=== PATIENT | female | born 1985 | race Caucasian/White ===

== ENCOUNTER 2019-11-26 22:22 | Emergency (ER) | payer MEDICAID, SELFPAY ==
[2019-11-26 22:23] VITALS: BP 136/83; PULSE 107; RESP 16; TEMP 37.2; O2SAT 98; BMI 20.7
[2019-11-26 22:53] LABS: Microscopic, Urine URINE MICROSCOPIC (MICROSCOPIC)
[2019-11-26 22:55] LABS: Appearance,Urine CLEAR (Clear); Bilirubin,Urine Negative (Negative); Blood, Urine TRACE-L (Negative); Color,Urine YELLOW (Yellow); Glucose,Urine (UA) Negative (Negative); Ketones,Urine Negative (Negative); Leukocyte Esterase,Urine TRACE (Negative); Nitrate,Urine Negative (Negative); Protein,Urine Negative (Negative); Specific Gravity, Urine <= 1.005 (1.005-1.030); Urobilinogen,Urine 0.2 EU/dl (0.2)
[2019-11-26 22:56] LABS: Basophils # 0.1 K/mm3 (0-0.2); Basophils % 0.6 % (0.1-2.0); Eosinophils # 0.9 K/mm3 (0.0-0.4); Eosinophils % 6.5 % (0.1-12.0); Hematocrit 43.2 % (37.0-47.0); Hemoglobin 15.1 g/dL (12.2-16.2); Lymphocytes # 4.3 K/mm3 (0.7-4.5); Lymphocytes % 32.6 % (10-50); Mean Corpuscular HGB Conc 34.9 g/dL (31.8-35.4); Mean Corpuscular Hemoglobin 32.2 pg (27.0-31.2); Mean Corpuscular Volume 92.3 fl (81-99); Mean Platelet Volume 7.2 fl (7.4-10.4); Monocytes # 0.5 K/mm3 (0.1-1.0); Monocytes % 3.6 % (1.7-9.3); Neutrophils # 7.5 K/mm3 (1.8-7.8); Neutrophils % 56.8 % (37.0-80.0); Platelet Count 316 K/mm3 (142-424); Red Blood Count 4.68 M/mm3 (4.20-5.40); Red Cell Distribution Width 12.2 % (11.5-17.5); White Blood Count 13.3 K/mm3 (4.8-10.8)
[2019-11-26 22:57] LABS: Chloride 103 mmol/L (98-107); Potassium 3.4 mmoL/L (3.5-5.1); Sodium 140 mmol/L (136-145)
[2019-11-26 22:59] LABS: Blood Urea Nitrogen 8 mg/dl (7-17); Creatinine Clearance Estimated 90 mL/min (50-200); Estimated Glomerular Filt Rate 83 ml/min (>60); GFR (African American) 100 ML/MIN (>60)
[2019-11-26 23:00] LABS: Alanine Aminotransferase 15 U/L (12-78); Albumin Level 4.7 g/dl (3.5-5.0); Albumin/Globulin Ratio 1.3 (1.1-1.8); Alkaline Phosphatase 112 U/L (38-126); Anion Gap 15.4 mEq/L (5-15); Aspartate Amino Transferase 21 U/L (14-36); Bilirubin,Total 0.6 mg/dl (0.2-1.3); Carbon Dioxide 25 mmol/L (22.0-30.0); Globulin 3.5 g/dL (1.3-3.2); Glucose 117 mg/dl (74-100); Total Protein,Serum 8.2 g/dl (6.3-8.2)
[2019-11-26 23:03] LABS: Urine Pregnancy, HCG Qual. Negative (Negative)
[2019-11-26 23:09] LABS: Bacteria,Urine 1+ /lpf
[2019-11-26 23:09] LABS: HCG Qualitative, Serum Negative (Negative)
--- NOTE | 2019-11-26 23:34 | HMH.EDNVD ---
ED Disposition Clinical Impression: Fatigue Qualifiers: Fatigue type: unspecified Qualified Code(s): R53.83 - Other fatigue Disposition: Home, Self-Care Condition on Discharge: Good Instructions: DI for Nausea -- Adult Additional Instructions: fluids and call pcp in am Referrals: Rachel Logan PA [Primary Care Provider] - - Critical Care Critical Care Time: No Attestation: On 11/26/19, the high probability of a clinically significant, sudden or life threatening deterioration of the following system(s) required my full and direct attention, intervention and personal management. The time I documented below is in addition to time spent performing reported procedures but includes the following listed in this critical care notation. Medical Decision Making - Medical Records Medical records reviewed: Yes: I reviewed the patient's medical records. - Lawson Inquiry Pt receiving controlled substance: No Vital Signs: 11/26/19 22:23 Temperature 98.9 F Temperature Source Oral Pulse Rate [Left Radial] 107 H Respiratory Rate 16 Blood Pressure [Right Arm] 136/83 Blood Pressure Mean [Right Arm] 100 Blood Pressure Source [Right Arm] Automatic Cuff Blood Pressure Position [Right Arm] Sitting 02 Sat by Pulse Oximetry 98 Oxygen Delivery Method Room Air - Lab Data Lab results reviewed: Yes: I reviewed the patient's lab results. Lab Results 11/26/19 22:30: Urine Color Yellow, Urine Appearance Clear, Urine pH 6.0, Ur Specific [place] <= 1.005, Urine Protein Negative, Urine Glucose (UA) Negative, Urine Ketones Negative, Urine Blood Trace-l, Urine Nitrate Negative, Urine Bilirubin Negative, Urine Urobilinogen 0.2, Ur Leukocyte Esterase Trace, Urine RBC 3-5, Urine WBC 3-5, Ur Squamous Epith Cells 5-10, Urine Bacteria 1+ 11/26/19 22:30: Urine HCG, Qual Negative 11/26/19 22:45: WBC 13.3 H, RBC 4.68, Hgb 15.1, Hct 43.2, MCV 92.3, MCH 32.2 H, MCHC 34.9, RDW 12.2, Plt Count 316, MPV 7.2 L, Neut % (Auto) 56.8, Lymph % (Auto) 32.6, [place] % (Auto) 3.6, Eos % (Auto) 6.5, Baso % (Auto) 0.6, Neut # (Auto) 7.5, Lymph # (Auto) 4.3, [place] # (Auto) 0.5, Eos # (Auto) 0.9 H, Baso # (Auto) 0.1 11/26/19 22:45: Sodium 140, Potassium 3.4 L, Chloride 103, Carbon Dioxide 25, Anion Gap 15.4 H, BUN 8, Creatinine 0.80, Estimated Creat Clear 90, Estimated GFR 83, Est GFR ( Amer) 100, Glucose 117 H, Calcium 10.0, Total Bilirubin 0.6, AST 21, ALT 15, Alkaline Phosphatase 112, Total Protein 8.2, Albumin 4.7, Globulin 3.5 H, Albumin/Globulin Ratio 1.3 11/26/19 22:45: Serum HCG, Qual Negative Result diagrams: 11/26/19 22:45 11/26/19 22:45 Nausea/Vomiting/Diarrhea HPI - General Chief complaint: Nausea/Vomiting/Diarrhea Stated complaint: no engery Time Seen by Provider: 11/26/19 23:34 Mode of Arrival: Ambulatory Source of Information: Patient, Medical Record Limitations: No Limitations Description of Symptoms (Recalled from ER Triage Doc. by RN): pt stated she had had no energy for the past couple of days and has been nauseous. pt stated she needs blood work because she thinks she might be - History of Present Illness HPI Narrative: dec energy and nausea over the last few days MD complaint: nausea Onset (ago): hour(s) Associated Abdominal Pain: Yes Associated symptoms: denies other symptoms - Related Data Previous Rx's Medication Instructions Recorded predniSONE [Prednisone 10mg Tab 10 mg PO UD DOSE PK 6 Days #21 pack 12/11/18 Dose-Pack] Allergies Allergy/AdvReac Type Severity Reaction Status Date / Time No Known Allergies Allergy Verified 11/08/18 20:12 [facility] History - Hepatitis A Screen Drug use history?: No High risk sexual behaviors?: No History of sexually transmitted infection?: No Currently employed?: No Childcare worker?: No Do you have indoor plumbing?: Yes Do you have electricity?: Yes Attestation statement:: This patient has been screened for Hepatitis A risk factors. I robe
[2019-11-26 23:43] VITALS: BP 110/71; PULSE 67; RESP 16; TEMP 36.6; O2SAT 98
[2019-11-27 00:20] LABS: Thyroid Stimulating Hormone 0.55 uIU/mL (0.465-4.68)
== END 2019-11-26 23:44 | disposition home or self-care (01) ==
PROVIDERS: Emergency Provider Emergency Medicine; PCP Physician Assistant
DX: R53.83 Other fatigue (principal); F41.9 Anxiety disorder, unspecified; F17.210 Nicotine dependence, cigarettes, uncomplicated
CPT/HCPCS: 80053; 81001; 81025; 84436; 84443; 84703; 85025; 99283

== ENCOUNTER 2020-01-22 23:10 | Emergency (ER) | payer MEDICAID, SELFPAY ==
[2020-01-22 23:14] VITALS: BP 129/78; PULSE 108; RESP 16; TEMP 36.8; O2SAT 98; BMI 21.4
[2020-01-22 23:40] VITALS: BMI 21.4
--- NOTE | 2020-01-22 23:41 | US_ITS ---
PROCEDURE: US OB TRANSVAGINAL CLINICAL INDICATION: abd cramping 9 weeks COMPARISON: No exams were available for comparison FINDINGS: An intrauterine gestational sac is present with a pole with a crown-rump length of 1.42 cm correlating to gestational age of 7 weeks 6 days. heart tones are present with an FHR of 174. Yolk sac is noted. No adnexal mass apparent. There is bilateral ovarian blood flow IMPRESSION: Live IUP at 7 weeks 6 days. Estimated due date by Ultrasound is 09/06/2020 Dictated by: Gerardo Blanchard MD 01/23/2020 06:15 Gerardo Blanchard MD in [facility] 01/23/2020 06:15
[2020-01-22 23:44] LABS: Microscopic, Urine URINE MICROSCOPIC (MICROSCOPIC)
[2020-01-22 23:50] LABS: Urine Pregnancy, HCG Qual. Positive (Negative)
[2020-01-22 23:51] LABS: Chloride 103 mmol/L (98-107); Potassium 3.1 mmoL/L (3.5-5.1); Sodium 137 mmol/L (136-145)
[2020-01-22 23:52] LABS: Appearance,Urine CLEAR (Clear); Bilirubin,Urine Negative (Negative); Blood, Urine Negative (Negative); Color,Urine YELLOW (Yellow); Glucose,Urine (UA) Negative (Negative); Ketones,Urine Negative (Negative); Leukocyte Esterase,Urine TRACE (Negative); Nitrate,Urine Negative (Negative); PH,Urine 6.5 (5.0-8.5); Protein,Urine Negative (Negative); Specific Gravity, Urine 1.015 (1.005-1.030)
[2020-01-22 23:54] LABS: Anion Gap 11.1 mEq/L (5-15); Blood Urea Nitrogen 5 mg/dl (7-17); Calcium 9.5 mg/dl (8.4-10.2); Carbon Dioxide 26 mmol/L (22.0-30.0); Creatinine Clearance Estimated 119 mL/min (50-200); Estimated Glomerular Filt Rate 115 ml/min (>60); GFR (African American) 139 ML/MIN (>60); Glucose 110 mg/dl (74-100)
[2020-01-22 23:57] LABS: Amorphous Sediment,Urine 1+ /lpf; Bacteria,Urine 1+ /lpf; Mucus,Urine 1+ /lpf
--- NOTE | 2020-01-22 23:57 | HMH.EDPREG ---
ED Disposition Clinical Impression: Qualifiers: Weeks of gestation: 8 weeks Qualified Code(s): Z3A.08 - 8 weeks gestation of Disposition: Home, Self-Care Condition on Discharge: Good Instructions: Diet Additional Instructions: see ob and pcp for follow up Referrals: Rachel Logan PA [Primary Care Provider] - - Critical Care Critical Care Time: No Attestation: On 01/22/20, the high probability of a clinically significant, sudden or life threatening deterioration of the following system(s) required my full and direct attention, intervention and personal management. The time I documented below is in addition to time spent performing reported procedures but includes the following listed in this critical care notation. Medical Decision Making - Medical Records Medical records reviewed: Yes: I reviewed the patient's medical records. - Lawson Inquiry Pt receiving controlled substance: No Vital Signs: 01/22/20 23:14 Temperature 98.2 F Temperature Source Oral Pulse Rate [Left Radial] 108 H Respiratory Rate 16 Blood Pressure [Right Arm] 129/78 Blood Pressure Mean [Right Arm] 95 Blood Pressure Source [Right Arm] Automatic Cuff Blood Pressure Position [Right Arm] Sitting 02 Sat by Pulse Oximetry 98 Oxygen Delivery Method Room Air - Lab Data Lab results reviewed: Yes: I reviewed the patient's lab results. Lab Results 01/22/20 23:31: Urine Color Yellow, Urine Appearance Clear, Urine pH 6.5, Ur Specific [place] 1.015, Urine Protein Negative, Urine Glucose (UA) Negative, Urine Ketones Negative, Urine Blood Negative, Urine Nitrate Negative, Urine Bilirubin Negative, Urine Urobilinogen 1.0, Ur Leukocyte Esterase Trace, Urine WBC 3-5, Ur Squamous Epith Cells 5-10, Amorphous Sediment 1+, Urine Bacteria 1+, Urine Mucus 1+ 01/22/20 23:31: Urine HCG, Qual Positive 01/22/20 23:35: WBC 12.8 H, RBC 4.41, Hgb 14.0, Hct 41.9, MCV 95.1, MCH 31.8 H, MCHC 33.5, RDW 12.5, Plt Count 352, MPV 7.0 L, Neut % (Auto) 61.3, Lymph % (Auto) 29.8, [place] % (Auto) 4.4, Eos % (Auto) 4.1, Baso % (Auto) 0.5, Neut # (Auto) 7.8, Lymph # (Auto) 3.8, [place] # (Auto) 0.6, Eos # (Auto) 0.5 H, Baso # (Auto) 0.1 01/22/20 23:35: Sodium 137, Potassium 3.1 L, Chloride 103, Carbon Dioxide 26, Anion Gap 11.1, BUN 5 L, Creatinine 0.60, Estimated Creat Clear 119, Estimated GFR 115, Est GFR ( Amer) 139, Glucose 110 H, Calcium 9.5, HCG, Quant [id number] H Result diagrams: 01/22/20 23:35 01/22/20 23:35 Orders (Tests/Meds): ED MEDICATIONS Generic Name Dose Route Start Last Admin Trade Name Freq PRN Reason Stop Dose Admin Sodium Chloride 1,000 mls @ 999 mls/hr 01/23/20 00:15 Sod Chlor 0.9% 1000ml Bag IV 01/23/20 01:15 .Q1H1M [place] ORDERS Category Date Time Status US OB transvaginal Stat Ultrasound 01/22/20 23:41 Taken - US Data US Images: Pelvis ED US Reviewed: Yes: I have viewed radiologist's interpretation Findings Narrative: iup 8 weeks HPI - General Chief complaint: Nausea/Vomiting/Diarrhea Stated complaint: 9 weeks, stomach cramps Time Seen by Provider: 01/22/20 23:40 Mode of Arrival: Ambulatory Source of Information: Patient, Medical Record Limitations: No Limitations Description of Symptoms (Recalled from ER Triage Doc. by RN): pt stated she is estimated to be 9 weeks and c/o nausea and pelvic cramping for the last 2 days. - History of Present Illness HPI Narrative: with cramps w/o bleeding and nausea MD Complaint: abdominal pain Onset (ago): day(s) Severity: moderate Quality: cramping : Yes Date of Last Menstrual Period: unk care: none - Related Data Previous Rx's Medication Instructions Recorded predniSONE [Prednisone 10mg Tab 10 mg PO UD DOSE PK 6 Days #21 pack 12/11/18 Dose-Pack] Allergies Allergy/AdvReac Type Severity Reaction Status Date / Time No Known Allergies Allergy Verified 11/08/18 2
[2020-01-22 23:59] LABS: Basophils # 0.1 K/mm3 (0-0.2); Basophils % 0.5 % (0.1-2.0); Eosinophils # 0.5 K/mm3 (0.0-0.4); Eosinophils % 4.1 % (0.1-12.0); Hematocrit 41.9 % (37.0-47.0); Lymphocytes # 3.8 K/mm3 (0.7-4.5); Lymphocytes % 29.8 % (10-50); Mean Corpuscular HGB Conc 33.5 g/dL (31.8-35.4); Mean Corpuscular Hemoglobin 31.8 pg (27.0-31.2); Mean Corpuscular Volume 95.1 fl (81-99); Monocytes # 0.6 K/mm3 (0.1-1.0); Monocytes % 4.4 % (1.7-9.3); Neutrophils # 7.8 K/mm3 (1.8-7.8); Neutrophils % 61.3 % (37.0-80.0); Platelet Count 352 K/mm3 (142-424); Red Blood Count 4.41 M/mm3 (4.20-5.40); Red Cell Distribution Width 12.5 % (11.5-17.5); White Blood Count 12.8 K/mm3 (4.8-10.8)
[2020-01-23 00:50] VITALS: BP 127/81; PULSE 75; RESP 16; TEMP 36.8; O2SAT 99
== END 2020-01-23 00:52 | disposition home or self-care (01) ==
PROVIDERS: Emergency Provider Emergency Medicine; PCP Physician Assistant
DX: R11.2 Nausea with vomiting, unspecified (principal); Z3A.08 8 weeks gestation of pregnancy; F17.210 Nicotine dependence, cigarettes, uncomplicated
CPT/HCPCS: 76817; 80048; 81001; 81025; 84702; 85025; 96365; 99283

== ENCOUNTER → 2020-01-29 14:36 | Outpatient (CLI) | payer MEDICAID, SELFPAY ==
[2020-01-29 15:13] LABS: Basophils # 0.1 K/mm3 (0-0.2); Basophils % 0.5 % (0.1-2.0); Eosinophils # 0.4 K/mm3 (0.0-0.4); Eosinophils % 3.3 % (0.1-12.0); Hematocrit 39.5 % (37.0-47.0); Hemoglobin 14.2 g/dL (12.2-16.2); Lymphocytes # 2.6 K/mm3 (0.7-4.5); Lymphocytes % 23.8 % (10-50); Mean Corpuscular HGB Conc 35.9 g/dL (31.8-35.4); Mean Corpuscular Hemoglobin 33.7 pg (27.0-31.2); Mean Corpuscular Volume 93.9 fl (81-99); Mean Platelet Volume 6.9 fl (7.4-10.4); Monocytes # 0.4 K/mm3 (0.1-1.0); Monocytes % 3.8 % (1.7-9.3); Neutrophils # 7.6 K/mm3 (1.8-7.8); Neutrophils % 68.6 % (37.0-80.0); Platelet Count 313 K/mm3 (142-424); Red Cell Distribution Width 12.5 % (11.5-17.5); White Blood Count 11.1 K/mm3 (4.8-10.8)
[2020-01-31 10:47] LABS: Rapid Plasma Reagin Ab Titer Non Reactive (NonRea<1:1)
[2020-01-31 13:49] LABS: HIV Screen 4th Generation wRfx Non Reactive (Non Reactive); Hepatitis B Surface Antigen Negative (Negative); Hepatitis C Antibody <0.1 s/co ratio (0.0-0.9); Rubella Antibodies, IgG 1.59 index (Immune >0.99)
== END ==
PROVIDERS: Visit Provider Nurse Practitioner Obstetrics & Gynecology
DX: Z34.90 Encounter for supervision of normal pregnancy, unspecified, unspecified trimester (principal)
CPT/HCPCS: 36415; 85025; 86592; 86703; 86762; 86850; 87340; 87380; G0432

== ENCOUNTER → 2020-03-10 16:51 | Outpatient (CLI) | payer MEDICAID, SELFPAY ==
[2020-03-10 16:52] LABS: Microscopic, Urine URINE MICROSCOPIC (MICROSCOPIC)
[2020-03-10 17:31] LABS: Appearance,Urine CLOUDY (Clear); Bilirubin,Urine Negative (Negative); Blood, Urine Negative (Negative); Color,Urine YELLOW (Yellow); Glucose,Urine (UA) Negative (Negative); Ketones,Urine Negative (Negative); Leukocyte Esterase,Urine 1+ (Negative); Nitrate,Urine POSITIVE (Negative); Protein,Urine Negative (Negative)
[2020-03-10 17:55] LABS: Bacteria,Urine 3+ /lpf; Squamous Epithelial Cell,Urine 20-50 #/hpf (0-5)
== END ==
PROVIDERS: Visit Provider Nurse Practitioner Obstetrics & Gynecology
DX: Z34.90 Encounter for supervision of normal pregnancy, unspecified, unspecified trimester (principal); N39.0 Urinary tract infection, site not specified
CPT/HCPCS: 81001; 87077; 87086; 87088

== ENCOUNTER → 2020-04-07 13:05 | Outpatient (CLI) | payer MEDICAID, SELFPAY ==
[2020-04-10 00:07] LABS: AFP Value 41.3 ng/mL (.); DIA MoM 2.41 (.); DSR (Second Trimester) 1 IN 388 (.); Gest. Age on Collection Date 18.7 WEEKS (.); Maternal Age At EDD 33.8 yr (.); OSBR Risk 1 IN 10000 (.); Results Report (.); hCG MoM 0.72 (.); hCG Value 22217 mIU/mL (.); uE3 MoM 1.01 (.); uE3 Value 1.88 ng/mL (.)
[2020-04-10 08:47] LABS: Gestat. Age Based On EDD (.)
== END ==
PROVIDERS: Visit Provider Nurse Practitioner Obstetrics & Gynecology
DX: Z34.90 Encounter for supervision of normal pregnancy, unspecified, unspecified trimester (principal); N39.0 Urinary tract infection, site not specified
CPT/HCPCS: 36415; 82106; 87086

== ENCOUNTER → 2020-04-22 12:46 | Outpatient (CLI) | payer MEDICAID, SELFPAY ==
--- NOTE | 2020-04-22 12:47 | US_ITS ---
PROCEDURE: US OB /MATERNAL DETAIL CLINICAL INDICATION: 20 week gestation Anatomy scan COMPARISON: US US OB TRANSVAGINAL from 01/23/2020 FINDINGS: There is a single live fetus present which is in breech presentation. The cervix is closed and measures 3 cm. The placenta is posterior and grade 1. Complete survey performed and was unremarkable on the submitted images as in PACS. No discrete anomalies identified on survey imaging by technologist. Active fetus. Three-vessel cord with satisfactory umbilical cord insertion. 4- chamber heart noted. There is a nonspecific echogenic intracardiac focus Survey of brain & ventricles Unremarkable. Face and neck survey unremarkable. Diaphragm and chest views unremarkable. Abdomen: Both kidneys noted and unremarkable. Stomach noted and satisfactory. Spine: Survey of the spine satisfactory with no anomalies identified nor imaged. Both arms and legs noted. Amniotic Fluid: Adequate. Maternal adnexa: No significant findings. Measurements: Average ultrasound age 21weeks 1day. Gestational Age 21weeks 0days Estimated due date by ultrasound age 0609/01/2020. Estimated weight 298g BPD = 21weeks 2days OFD = 20weeks 6days HC = 20weeks 2days AC = 21weeks 3days FL = 21weeks 1day Growth Percentile= 50Percent% Heart Rate = 149bpm Cerebellum = 21weeks 4days Humerus = 21weeks 2days HC/AC is 1.09 CI is 0.81 FL/BPD is 0.70 FL/AC is 0.22 IMPRESSION: Live IUP in breech presentation with an average ultrasound age 21 weeks 1 day. All parameters correlate. There is a nonspecific probably incidental intracardiac echogenic focus. Otherwise unremarkable. Please see above for detail. Dictated by: Gerardo Blanchard MD 04/24/2020 11:25 Gerardo Blanchard MD in [facility] 04/24/2020 11:25
== END ==
PROVIDERS: PCP Physician Assistant; Visit Provider Nurse Practitioner Obstetrics & Gynecology
DX: Z34.90 Encounter for supervision of normal pregnancy, unspecified, unspecified trimester (principal); Z3A.20 20 weeks gestation of pregnancy
CPT/HCPCS: 76811

== ENCOUNTER → 2020-05-06 17:07 | Outpatient (CLI) | payer MEDICAID, SELFPAY | PROVIDERS: Visit Provider Nurse Practitioner Obstetrics & Gynecology | DX: N39.0 Urinary tract infection, site not specified (principal) | CPT/HCPCS: 87086 ==

== ENCOUNTER 2020-05-18 21:51 | Emergency (ER) | payer MEDICAID, SELFPAY ==
--- NOTE | 2020-05-18 22:00 | ECG_ITS ---
APPROVED REPORT Exam: Resting ECG HR:121 bpm ECG Measurements Heart Rate 121 AXES OK 166 P 58 QRSd 66 QRS 72 QT 286 T 81 QTc 406 Conclusion Sinus tachycardia Nonspecific ST and T wave abnormality Abnormal ECG Electronically signed by : López Perdomo, 05/19/2020 06:56:37
[2020-05-18 22:02] VITALS: BP 163/85; PULSE 134; RESP 18; TEMP 37; O2SAT 98; BMI 22.3
--- NOTE | 2020-05-18 22:18 | XR_ITS ---
PROCEDURE: XR CHEST 2V CLINICAL HISTORY: SOA Shortness of air, smoker COMPARISON: No exams were available for comparison FINDINGS: The cardiomediastinal silhouette and pulmonary vascularity are within normal limits. The lungs are clear without infiltrates, suspicious nodules, or pleural effusions. No acute bony abnormalities. IMPRESSION: No acute findings. Dictated by: Gerardo Blanchard MD 05/19/2020 05:15 Gerardo Blanchard MD in [facility] 05/19/2020 05:15
--- NOTE | 2020-05-18 22:32 | HMH.EDSOB ---
ED Disposition Clinical Impression: GERD (gastroesophageal reflux disease) Qualifiers: Esophagitis presence: esophagitis presence not specified Qualified Code(s): K21.9 - Gastro-esophageal reflux disease without esophagitis Qualifiers: Weeks of gestation: 24 weeks Qualified Code(s): Z3A.24 - 24 weeks gestation of Disposition: Home, Self-Care Condition on Discharge: Good Instructions: DI for Shortness of Breath Additional Instructions: call dr neil for follow up Referrals: Rachel Logan PA [Primary Care Provider] - Ronni eNil MD [Staff Physician] - - Critical Care Critical Care Time: No Attestation: On 05/18/20, the high probability of a clinically significant, sudden or life threatening deterioration of the following system(s) required my full and direct attention, intervention and personal management. The time I documented below is in addition to time spent performing reported procedures but includes the following listed in this critical care notation. Medical Decision Making - Medical Records Medical records reviewed: Yes: I reviewed the patient's medical records. - Lawson Inquiry Pt receiving controlled substance: No Vital Signs: 05/18/20 22:02 05/18/20 22:51 Temperature 98.6 F Temperature Source Oral Pulse Rate [Right] 134 H 110 H Respiratory Rate 18 18 Blood Pressure [Right Arm] 163/85 H 147/82 H Blood Pressure Mean [Right Arm] 111 103 Blood Pressure Source [Right Arm] Automatic Cuff Blood Pressure Position [Right Arm] Supine 02 Sat by Pulse Oximetry 98 97 Oxygen Delivery Method Room Air Room Air - Lab Data Lab results reviewed: Yes: I reviewed the patient's lab results. Lab Results 05/18/20 22:50: WBC 19.0 H, RBC 3.46 L, Hgb 11.3 L, Hct 32.4 L, MCV 93.7, MCH 32.7 H, MCHC 34.9, RDW 13.2, Plt Count 402, MPV 7.0 L, Neut % (Auto) 80.9 H, Lymph % (Auto) 11.3, [place] % (Auto) 2.6, Eos % (Auto) 4.8, Baso % (Auto) 0.4, Neut # (Auto) 15.3 H, Lymph # (Auto) 2.2, [place] # (Auto) 0.5, Eos # (Auto) 0.9 H, Baso # (Auto) 0.1, Total Counted 100, Neutrophils % (Manual) 74, Band Neutrophils % 9.0 H, Lymphocytes % (Manual) 13, Monocytes % (Manual) 1 L, Eosinophils % (Manual) 3, Platelet Estimate Normal, RBC Morphology Normal, ESR 123 H 05/18/20 22:50: D-Dimer 1.64 H 05/18/20 22:50: Sodium 137, Potassium 3.2 L, Chloride 107, Carbon Dioxide 24, Anion Gap 9.2, BUN 6 L, Creatinine 0.60, Estimated Creat Clear 124, Estimated GFR 115, Est GFR ( Amer) 139, Glucose 121 H, Calcium 10.1, Total Bilirubin 0.5, AST 19, ALT 10 L, Alkaline Phosphatase 121, C-Reactive Protein 10.7 H, Total Protein 6.9, Albumin 3.7, Globulin 3.2, Albumin/Globulin Ratio 1.2, Procalcitonin 0.094, HCG, Quant [id number] H 05/18/20 22:50: SARS-CoV-2 IgG Ab (Rapid) Negative, SARS-CoV-2 IgM Ab (Rapid) Negative 05/18/20 22:50: Amylase 77, Lipase 125 Result diagrams: 05/18/20 22:50 05/18/20 22:50 Orders (Tests/Meds): ED MEDICATIONS Generic Name Dose Route Start Last Admin Trade Name Freq PRN Reason Stop Dose Admin Sodium Chloride 1,000 mls @ 999 mls/hr 05/18/20 22:30 05/18/20 22:34 Sod Chlor 0.9% 1000ml Bag IV 05/18/20 23:30 999 mls/hr .Q1H1M [place] Administration Sodium Chloride 8 ml 05/18/20 23:11 Sodium Chloride 0.9% 10ml Vial IV 06/17/20 23:10 NEEDED PRN dilute pepcid Discontinued Medications Generic Name Dose Route Start Last Admin Trade Name Freq PRN Reason Stop Dose Admin Famotidine 20 mg 05/18/20 23:11 05/18/20 23:24 Famotidine 20mg/2ml Vial IV 05/18/20 23:12 20 mg ONCE ONE Administration Metoclopramide HCl 10 mg 05/18/20 23:11 05/18/20 23:24 Metoclopramide Hcl 10mg/2ml Vial IVP 05/18/20 23:12 10 mg ONCE ONE Administration Pantoprazole Sodium 40 mg 05/19/20 00:13 Pantoprazole 40mg Tablet PO 05/19/20 00:14 ONCE ONE ORDERS Category Date Time Status XR chest 2V Stat Exams 05/18/20 22:18 Taken Covid-19 Nasal PCR ([facility]) Routine
[2020-05-18 22:51] VITALS: BP 147/82; PULSE 110; RESP 18; O2SAT 97
[2020-05-18 22:55] LABS: Basophils # 0.1 K/mm3 (0-0.2); Basophils % 0.4 % (0.1-2.0); Eosinophils # 0.9 K/mm3 (0.0-0.4); Eosinophils % 4.8 % (0.1-12.0); Hematocrit 32.4 % (37.0-47.0); Hemoglobin 11.3 g/dL (12.2-16.2); Lymphocytes # 2.2 K/mm3 (0.7-4.5); Lymphocytes % 11.3 % (10-50); MANUAL DIFFERENTIAL MANUAL DIFFERENTIAL (MANUAL DIFF); Mean Corpuscular HGB Conc 34.9 g/dL (31.8-35.4); Mean Corpuscular Hemoglobin 32.7 pg (27.0-31.2); Mean Corpuscular Volume 93.7 fl (81-99); Monocytes # 0.5 K/mm3 (0.1-1.0); Monocytes % 2.6 % (1.7-9.3); Neutrophils # 15.3 K/mm3 (1.8-7.8); Neutrophils % 80.9 % (37.0-80.0); Platelet Count 402 K/mm3 (142-424); Red Blood Count 3.46 M/mm3 (4.20-5.40); Red Cell Distribution Width 13.2 % (11.5-17.5)
[2020-05-18 23:02] LABS: Chloride 107 mmol/L (98-107); Potassium 3.2 mmoL/L (3.5-5.1); Sodium 137 mmol/L (136-145)
[2020-05-18 23:05] LABS: Alanine Aminotransferase 10 U/L (12-78); Albumin Level 3.7 g/dl (3.5-5.0); Albumin/Globulin Ratio 1.2 (1.1-1.8); Alkaline Phosphatase 121 U/L (38-126); Anion Gap 9.2 mEq/L (5-15); Aspartate Amino Transferase 19 U/L (14-36); Bilirubin,Total 0.5 mg/dl (0.2-1.3); Blood Urea Nitrogen 6 mg/dl (7-17); Carbon Dioxide 24 mmol/L (22.0-30.0); Creatinine Clearance Estimated 124 mL/min (50-200); Estimated Glomerular Filt Rate 115 ml/min (>60); GFR (African American) 139 ML/MIN (>60); Globulin 3.2 g/dL (1.3-3.2); Total Protein,Serum 6.9 g/dl (6.3-8.2)
[2020-05-18 23:06] LABS: Calcium 10.1 mg/dl (8.4-10.2); Glucose 121 mg/dl (74-100)
[2020-05-18 23:11] LABS: C-Reactive Protein 10.7 mg/L (0-4); D-Dimer 1.64 ug/mL (0.0-0.5)
[2020-05-18 23:14] LABS: Eosinophils % 3 % (0-3); Lymphocytes % 13 % (10-50); Monocytes % 1 % (2-9); Neutrophils % 74 % (42-76); Platelet Estimate Normal; RBC Morphology Normal; Total Cells Counted 100
[2020-05-18 23:18] LABS: Erythrocyte Sedimentation Rate 123 mm/hr (0-20)
[2020-05-18 23:25] LABS: Coronavirus 19 IgG Antibody Negative (Negative); HCG,Quantitative 14602 mIU/ml (0-5.42)
[2020-05-18 23:26] LABS: Coronavirus 19 IgM Antibody Negative (Negative)
[2020-05-18 23:28] LABS: Amylase 77 U/L (30-110); Lipase 125 U/L (23-300)
--- NOTE | 2020-05-18 23:30 | PC.NURSE ---
heart tones at 156
[2020-05-18 23:34] LABS: Procalcitonin 0.094 ng/mL (0.0-2.0)
[2020-05-19 00:25] VITALS: BP 142/82; PULSE 108; RESP 16; TEMP 37; O2SAT 98
== END 2020-05-19 00:28 | disposition home or self-care (01) ==
PROVIDERS: Emergency Provider Emergency Medicine; PCP Physician Assistant
DX: K21.9 Gastro-esophageal reflux disease without esophagitis (principal); Z3A.24 24 weeks gestation of pregnancy; F41.9 Anxiety disorder, unspecified; F17.210 Nicotine dependence, cigarettes, uncomplicated; Z20.822 Contact with and (suspected) exposure to COVID-19
CPT/HCPCS: 71046; 80053; 82150; 83690; 84145; 84702; 85007; 85025; 85378; 85651; 86140; 86328; 93005; 96365; 96375; 99283; U0003

== ENCOUNTER → 2020-05-27 17:37 | Outpatient (CLI) | payer MEDICAID, SELFPAY | PROVIDERS: Visit Provider Nurse Practitioner Obstetrics & Gynecology | DX: Z34.90 Encounter for supervision of normal pregnancy, unspecified, unspecified trimester (principal); Z3A.26 26 weeks gestation of pregnancy | CPT/HCPCS: 87086; 87088; 87186 ==

== ENCOUNTER → 2020-06-18 15:55 | Outpatient (CLI) | payer MEDICAID, SELFPAY | PROVIDERS: Visit Provider Nurse Practitioner Obstetrics & Gynecology | DX: O23.40 Unspecified infection of urinary tract in pregnancy, unspecified trimester (principal); N39.0 Urinary tract infection, site not specified | CPT/HCPCS: 87086 ==

== ENCOUNTER → 2020-06-24 10:14 | Outpatient (CLI) | payer MEDICAID, SELFPAY ==
[2020-06-24 10:48] LABS: Glucose,Fasting 95 mg/dl (74-100)
[2020-06-24 12:27] LABS: Glucose 1 Hour 164 mg/dL (74-100)
== END ==
PROVIDERS: Visit Provider Nurse Practitioner Obstetrics & Gynecology
DX: Z34.90 Encounter for supervision of normal pregnancy, unspecified, unspecified trimester (principal)
CPT/HCPCS: 36415; 82951

== ENCOUNTER → 2020-07-23 08:33 | Outpatient (CLI) | payer MEDICAID, SELFPAY ==
[2020-07-23 09:16] LABS: Glucose,Fasting 91 mg/dl (74-100)
[2020-07-23 10:58] LABS: Glucose 1 Hour 191 mg/dL (74-100)
[2020-07-23 11:21] LABS: Glucose 2 Hour 160 mg/dL (74-100)
[2020-07-23 12:41] LABS: Glucose 3 Hour 121 mg/dL (74-100)
== END ==
PROVIDERS: Visit Provider Nurse Practitioner Obstetrics & Gynecology
DX: O99.814 Abnormal glucose complicating childbirth (principal)
CPT/HCPCS: 36415; 82951

== ENCOUNTER 2020-07-24 23:16 | Inpatient (IN) | payer MEDICAID, SELFPAY ==
[2020-07-24 20:53] VITALS: BMI 21.9
[2020-07-24 21:11] VITALS: BP 156/90; PULSE 124; RESP 18; TEMP 36.7; O2SAT 99; BMI 21.9
[2020-07-24 21:45] LABS: Microscopic, Urine URINE MICROSCOPIC (MICROSCOPIC)
[2020-07-24 21:48] LABS: Appearance,Urine CLEAR (Clear); Bilirubin,Urine Negative (Negative); Blood, Urine TRACE-L (Negative); Color,Urine YELLOW (Yellow); Glucose,Urine (UA) Negative (Negative); Ketones,Urine Negative (Negative); Leukocyte Esterase,Urine 2+ (Negative); Nitrate,Urine Negative (Negative); Protein,Urine Negative (Negative); Specific Gravity, Urine <= 1.005 (1.005-1.030); Urobilinogen,Urine 0.2 EU/dl (0.2)
[2020-07-24 21:59] LABS: Barbiturates Screen,Urine Negative ng/ml (<200)
[2020-07-24 22:00] LABS: Amphetamine/Metha Screen,Urine Negative ng/ml (<1000); Benzodiazepines Screen,Urine Negative ng/ml (<200)
[2020-07-24 22:01] LABS: Cannabinoid Screen,Urine Negative ng/ml (<50)
[2020-07-24 22:02] LABS: Cocaine Screen,Urine Negative ng/ml (<300); Methadone Screen,Urine Negative ng/ml (<300)
[2020-07-24 22:03] LABS: Opiate Screen,Urine Negative ng/ml (<300)
[2020-07-24 22:04] LABS: Phencyclidine Screen,Urine Negative ng/ml (<25)
[2020-07-24 22:10] LABS: WBC,Urine 20-50 #/hpf (0-3)
[2020-07-24 22:11] LABS: Bacteria,Urine 1+ /lpf; Mucus,Urine 1+ /lpf; Squamous Epithelial Cell,Urine TNTC #/hpf (0-5)
[2020-07-24 23:38] VITALS: BP 133/69; PULSE 107; RESP 18; TEMP 36.8; O2SAT 99
[2020-07-24 23:39] LABS: Basophils # 0.1 K/mm3 (0-0.2); Basophils % 0.5 % (0.1-2.0); Eosinophils # 0.4 K/mm3 (0.0-0.4); Eosinophils % 2.6 % (0.1-12.0); Hematocrit 30.2 % (37.0-47.0); Hemoglobin 10.2 g/dL (12.2-16.2); Lymphocytes # 2.7 K/mm3 (0.7-4.5); Lymphocytes % 16.1 % (10-50); Mean Corpuscular HGB Conc 33.6 g/dL (31.8-35.4); Mean Corpuscular Volume 92.2 fl (81-99); Mean Platelet Volume 7.7 fl (7.4-10.4); Monocytes # 0.6 K/mm3 (0.1-1.0); Monocytes % 3.5 % (1.7-9.3); Neutrophils # 13.1 K/mm3 (1.8-7.8); Neutrophils % 77.2 % (37.0-80.0); Platelet Count 377 K/mm3 (142-424); Red Blood Count 3.28 M/mm3 (4.20-5.40); Red Cell Distribution Width 13.2 % (11.5-17.5)
[2020-07-24 23:43] LABS: Chloride 108 mmol/L (98-107)
[2020-07-24 23:44] LABS: Potassium 3.4 mmoL/L (3.5-5.1); Sodium 134 mmol/L (136-145)
[2020-07-24 23:46] LABS: Alanine Aminotransferase 8 U/L (12-78); Alkaline Phosphatase 192 U/L (38-126); Aspartate Amino Transferase 16 U/L (14-36); Bilirubin,Total 0.6 mg/dl (0.2-1.3); Blood Urea Nitrogen 3 mg/dl (7-17); Creatinine Clearance Estimated 147 mL/min (50-200); Estimated Glomerular Filt Rate 142 ml/min (>60); GFR (African American) 172 ML/MIN (>60)
[2020-07-24 23:47] LABS: Albumin Level 3.5 g/dl (3.5-5.0); Albumin/Globulin Ratio 1.1 (1.1-1.8); Anion Gap 8.4 mEq/L (5-15); Calcium 9.2 mg/dl (8.4-10.2); Carbon Dioxide 21 mmol/L (22.0-30.0); Globulin 3.1 g/dL (1.3-3.2); Glucose 99 mg/dl (74-100); Total Protein,Serum 6.6 g/dl (6.3-8.2)
[2020-07-24 23:59] LABS: MANUAL DIFFERENTIAL MANUAL DIFFERENTIAL (MANUAL DIFF)
[2020-07-25 00:58] LABS: Eosinophils % 5 % (0-3); Lymphocytes % 14 % (10-50); Neutrophils % 80 % (42-76); Total Cells Counted 100
[2020-07-25 00:59] LABS: Platelet Estimate Normal; Stomatocytes 1+
[2020-07-25 02:59] LABS: Magnesium 1.6 mg/dl (1.6-2.3)
[2020-07-25 03:15] VITALS: BP 133/69; PULSE 90; RESP 18; O2SAT 98
[2020-07-25 03:20] VITALS: BP 141/68; PULSE 90; RESP 18; O2SAT 97
[2020-07-25 03:25] VITALS: BP 133/75; PULSE 103; RESP 19; O2SAT 97
[2020-07-25 03:30] VITALS: BP 133/69; PULSE 107; RESP 18; O2SAT 96
[2020-07-25 03:35] VITALS: BP 133/71; PULSE 106; RESP 17; O2SAT 97
[2020-07-25 05:17] LABS: Microscopic, Urine URINE MICROSCOPIC (MICROSCOPIC)
[2020-07-25 05:22] LABS: Appearance,Urine CLEAR (Clear); Bilirubin,Urine Negative (Negative); Blood, Urine Negative (Negative); Color,Urine YELLOW (Yellow); Glucose,Urine (UA) Negative (Negative); Ketones,Urine 1+ (Negative); Leukocyte Esterase,Urine Negative (Negative); Nitrate,Urine Negative (Negative); PH,Urine 7.5 (5.0-8.5); Protein,Urine Negative (Negative); Specific Gravity, Urine 1.025 (1.005-1.030); Urobilinogen,Urine 0.2 EU/dl (0.2)
[2020-07-25 05:30] LABS: Amorphous Sediment,Urine 1+ /lpf; Bacteria,Urine 1+ /lpf; Mucus,Urine 1+ /lpf; Squamous Epithelial Cell,Urine Occasional #/hpf (0-5)
--- NOTE | 2020-07-25 07:34 | HMH.PHAINT ---
MEDICATION RECONCILIATION COMPLETED ON PATIENT USING EXTERNAL FILL HISTORY FROM PHARMACY. -MARIBELL PRIEST, SHANAED
[2020-07-25 08:00] VITALS: BP 121/73; PULSE 102; RESP 16; TEMP 36.8; O2SAT 97
--- NOTE | 2020-07-25 08:48 | HMH.HPDC ---
General - General Admission date:: 07/24/20 Discharge date: 07/25/20 *Admission Date: 07/24/20 *Chief complaint: Contractions *History of present illness: She is a 34-year-old 4 para 3 at 34 and 2 weeks gestational age. She has had a history of early delivery and delivered her last baby at 32 weeks. She had PIH in that . However she had labor and delivered quite quickly on arrival at . She began having contractions last night and was admitted to labor and delivery. She is having contractions every 2 to 3 minutes. At that time her cervix was 1 to 2 cm. She has changed her cervix to 2 to 3 cm and 50%. The cervix is soft and there is some bloody show. She is still having occasional contractions every 5 to 6 minutes. They are milder. She is currently receiving magnesium sulfate. She has received 1 dose of steroids she has received oral azithromycin as well as IV ampicillin. [facility] History I have reviewed the patient's past medical history: Yes Medical History: Reports:: Anxiety Denies:: Cancer, Diabetes Mellitus Type 1, Diabetes Mellitus Type 2, Home Oxygen, MRSA *Have you ever received a pneumonia vaccine?: No *Have you received a flu vaccine this season?: No Other Surgeries: Yes: No Previous Surgery. No: Amputation: No Fractures: No - *Social History Smoking Status: Current every day smoker Tobacco Type: cigarettes # Packs/Day (cigarettes): 1 Alcohol Intake: never Alcohol Intake Frequency:: other Substance Use Type: denies use *Occupational Status:: unemployed Housing: house *Travel in the last 8 weeks: None - Psychiatric History Pschychiatric History:: Reports:: Anxiety Family Hx:: No significant family history Para: 3 Review of Systems - Review of Systems Review of systems:: pertinent systems reviewed and negative unless documented below Exam Vital signs and Labs for Last 24 Hours: Temp Pulse Resp BP Pulse Ox 98.2 F 102 H 16 121/73 97 07/25/20 08:00 07/25/20 08:00 07/25/20 08:00 07/25/20 08:00 07/25/20 08:00 Laboratory Results - last 24 hr 07/24/20 20:51: Urine Color Yellow, Urine Appearance Clear, Urine pH 6.0, Ur Specific [place] <= 1.005, Urine Protein Negative, Urine Glucose (UA) Negative, Urine Ketones Negative, Urine Blood Trace-l, Urine Nitrate Negative, Urine Bilirubin Negative, Urine Urobilinogen 0.2, Ur Leukocyte Esterase 2+ A, Urine WBC 20-50, Ur Squamous Epith Cells Tntc, Urine Bacteria 1+, Urine Mucus 1+ 07/24/20 20:51: Urine Opiates Screen Negative, Urine Methadone Screen Negative, Ur Barbituates Screen Negative, Ur Phencyclidine Scrn Negative, Ur Amphetamines Screen Negative, U Benzodiazepines Scrn Negative, Urine Cocaine Screen Negative, U Marijuana (THC) Screen Negative 07/24/20 23:22: WBC 17.0 H, RBC 3.28 L, Hgb 10.2 L, Hct 30.2 L, MCV 92.2, MCH 31.0, MCHC 33.6, RDW 13.2, Plt Count 377, MPV 7.7, Neut % (Auto) 77.2, Lymph % (Auto) 16.1, [place] % (Auto) 3.5, Eos % (Auto) 2.6, Baso % (Auto) 0.5, Neut # (Auto) 13.1 H, Lymph # (Auto) 2.7, [place] # (Auto) 0.6, Eos # (Auto) 0.4, Baso # (Auto) 0.1, Total Counted 100, Neutrophils % (Manual) 80 H, Lymphocytes % (Manual) 14, Eosinophils % (Manual) 5 H, Basophils % (Manual) 1.0, Platelet Estimate Normal, Stomatocytes 1+ 07/24/20 23:22: Sodium 134 L, Potassium 3.4 L, Chloride 108 H, Carbon Dioxide 21 L, Anion Gap 8.4, BUN 3 L, Creatinine 0.50 L, Estimated Creat Clear 147, Estimated GFR 142, Est GFR ( Amer) 172, Glucose 99, Calcium 9.2, Total Bilirubin 0.6, AST 16, ALT 8 L, Alkaline Phosphatase 192 H, Total Protein 6.6, Albumin 3.5, Globulin 3.1, Albumin/Globulin Ratio 1.1 07/25/20 00:00: Magnesium 1.6 07/25/20 04:20: Urine Color Yellow, Urine Appearance Clear, Urine pH 7.5, Ur Specific [place] 1.025, Urine Protein Negative, Urine Glucose (UA) Negative, Urine Ketones 1+, Urine Blood Negative, Urine Nitrate Negative, Urine Bilirubin Negative, Urine Urobilinogen 0.2, Ur Leukocyte Esterase Negative, Urine WBC 3-5, U
== END 2020-07-25 09:50 | disposition short-term general hospital (02) | DRG 833 ==
LOC: OBOUT 23:18 → OB 23:18
PROVIDERS: Admitting Provider Obstetrics & Gynecology; PCP Physician Assistant; Visit Provider Obstetrics & Gynecology
DX: O60.03 Preterm labor without delivery, third trimester (principal); Z3A.34 34 weeks gestation of pregnancy; O13.3 Gestational [pregnancy-induced] hypertension without significant proteinuria, third trimester
CPT/HCPCS: 36415; 59025; 80053; 80305; 81001; 82951; 83735; 85007; 85025; 87086; 94761; 96360; 96361; 96372; G0283; J2405; U0003

== ENCOUNTER → 2020-07-29 17:01 | Outpatient (CLI) | payer MEDICAID, SELFPAY | PROVIDERS: Visit Provider Nurse Practitioner Obstetrics & Gynecology | DX: Z34.90 Encounter for supervision of normal pregnancy, unspecified, unspecified trimester (principal) | CPT/HCPCS: 86403 ==

== ENCOUNTER 2020-08-13 14:17 | Outpatient (CLI) | payer MEDICAID, SELFPAY ==
[2020-08-13 14:35] VITALS: BP 144/92; PULSE 118; RESP 20; TEMP 36.7; O2SAT 100; BMI 22.6
[2020-08-13 14:42] VITALS: BMI 22.6
[2020-08-13 14:48] LABS: Microscopic, Urine URINE MICROSCOPIC (MICROSCOPIC)
[2020-08-13 15:14] LABS: Appearance,Urine SL CLOUDY (Clear); Bilirubin,Urine Negative (Negative); Blood, Urine 1+ (Negative); Color,Urine YELLOW (Yellow); Glucose,Urine (UA) Negative (Negative); Ketones,Urine Negative (Negative); Leukocyte Esterase,Urine 3+ (Negative); Nitrate,Urine Negative (Negative); Protein,Urine Negative (Negative)
[2020-08-13 15:34] LABS: Fetal Membrane Rupture (Rapid) Negative (Negative)
[2020-08-13 15:39] LABS: WBC,Urine 20-50 #/hpf (0-3)
[2020-08-13 15:40] LABS: Bacteria,Urine 3+ /lpf
[2020-08-13 15:57] LABS: Amphetamine/Metha Screen,Urine Negative ng/ml (<1000); Barbiturates Screen,Urine Negative ng/ml (<200); Benzodiazepines Screen,Urine Negative ng/ml (<200); Cannabinoid Screen,Urine Negative ng/ml (<50); Methadone Screen,Urine Negative ng/ml (<300); Opiate Screen,Urine Negative ng/ml (<300); Phencyclidine Screen,Urine Negative ng/ml (<25)
[2020-08-13 16:01] LABS: Cocaine Screen,Urine Negative ng/ml (<300)
== END 2020-08-13 16:15 | disposition home or self-care (01) ==
LOC: OBOUT 14:19 → OB 14:20
PROVIDERS: PCP Physician Assistant; Visit Provider Nurse Practitioner Obstetrics & Gynecology
DX: O26.893 Other specified pregnancy related conditions, third trimester (principal); Z3A.37 37 weeks gestation of pregnancy
CPT/HCPCS: 59025; 80305; 81001; 84112; 87086; G0463

== ENCOUNTER 2020-08-22 13:38 | Outpatient (CLI) | payer MEDICAID, SELFPAY ==
[2020-08-22 13:46] VITALS: BMI 22.6
[2020-08-22 13:53] LABS: Microscopic, Urine URINE MICROSCOPIC (MICROSCOPIC)
[2020-08-22 13:56] LABS: Appearance,Urine CLOUDY (Clear); Blood, Urine Negative (Negative); Color,Urine DK YELLOW (Yellow); Glucose,Urine (UA) Negative (Negative); Ketones,Urine TRACE (Negative); Leukocyte Esterase,Urine 1+ (Negative); Nitrate,Urine Negative (Negative); Protein,Urine 2+ (Negative); Specific Gravity, Urine 1.025 (1.005-1.030)
[2020-08-22 14:02] VITALS: BP 143/93; PULSE 112; RESP 18; TEMP 36.6; O2SAT 100; BMI 22.6
[2020-08-22 14:13] LABS: Benzodiazepines Screen,Urine Negative ng/ml (<200)
[2020-08-22 14:14] LABS: Barbiturates Screen,Urine Negative ng/ml (<200); Cannabinoid Screen,Urine Negative ng/ml (<50)
[2020-08-22 14:15] LABS: Cocaine Screen,Urine Negative ng/ml (<300)
[2020-08-22 14:16] LABS: Methadone Screen,Urine Negative ng/ml (<300); Opiate Screen,Urine Negative ng/ml (<300)
[2020-08-22 14:17] LABS: Phencyclidine Screen,Urine Negative ng/ml (<25)
[2020-08-22 14:21] VITALS: BP 125/83
[2020-08-22 14:31] LABS: Bilirubin,Urine 1+ (Negative)
[2020-08-22 14:36] LABS: Bacteria,Urine Trace /lpf
[2020-08-22 16:37] LABS: Amphetamine/Metha Screen,Urine Negative ng/ml (<1000)
== END 2020-08-22 15:57 | disposition home or self-care (01) ==
LOC: OBOUT 13:39 → OB 13:39
PROVIDERS: PCP Physician Assistant; Visit Provider Obstetrics & Gynecology
DX: Z34.90 Encounter for supervision of normal pregnancy, unspecified, unspecified trimester (principal)
CPT/HCPCS: 59025; 80305; 81001; 87086; 96365; G0463

== ENCOUNTER 2020-08-23 05:52 | Inpatient (IN) | payer MEDICAID, SELFPAY ==
[2020-08-23 05:37] VITALS: BMI 22.6
[2020-08-23 05:57] LABS: Coronavirus 19, PCR Not Detected (NotDetected); Influenza A, PCR Not Detected (NotDetected); Influenza B, PCR Not Detected (NotDetected)
[2020-08-23 06:06] LABS: Basophils # 0.1 K/mm3 (0-0.2); Basophils % 0.3 % (0.1-2.0); Eosinophils # 0.3 K/mm3 (0.0-0.4); Eosinophils % 2.1 % (0.1-12.0); Hematocrit 30.4 % (37.0-47.0); Hemoglobin 10.5 g/dL (12.2-16.2); Lymphocytes # 2.8 K/mm3 (0.7-4.5); Lymphocytes % 17.7 % (10-50); Mean Corpuscular HGB Conc 34.7 g/dL (31.8-35.4); Mean Corpuscular Hemoglobin 30.4 pg (27.0-31.2); Mean Corpuscular Volume 87.7 fl (81-99); Mean Platelet Volume 8.2 fl (7.4-10.4); Monocytes # 0.7 K/mm3 (0.1-1.0); Monocytes % 4.5 % (1.7-9.3); Neutrophils # 11.9 K/mm3 (1.8-7.8); Neutrophils % 75.3 % (37.0-80.0); Platelet Count 417 K/mm3 (142-424); Red Blood Count 3.46 M/mm3 (4.20-5.40); Red Cell Distribution Width 13.6 % (11.5-17.5); White Blood Count 15.8 K/mm3 (4.8-10.8)
[2020-08-23 06:08] LABS: Fetal Membrane Rupture (Rapid) Negative (Negative)
[2020-08-23 06:09] LABS: MANUAL DIFFERENTIAL MANUAL DIFFERENTIAL (MANUAL DIFF)
[2020-08-23 06:26] LABS: Eosinophils % 3 % (0-3); Lymphocytes % 19 % (10-50); Monocytes % 4 % (2-9); Neutrophils % 74 % (42-76); Platelet Estimate Normal; RBC Morphology Normal; Total Cells Counted 100
[2020-08-23 06:53] LABS: Amphetamine/Metha Screen,Urine Negative ng/ml (<1000); Barbiturates Screen,Urine Negative ng/ml (<200)
[2020-08-23 06:54] LABS: Benzodiazepines Screen,Urine Negative ng/ml (<200)
[2020-08-23 06:55] LABS: Cannabinoid Screen,Urine Negative ng/ml (<50); Cocaine Screen,Urine Negative ng/ml (<300)
[2020-08-23 06:56] VITALS: BP 125/87; PULSE 110; RESP 20; TEMP 37; O2SAT 98; BMI 22.6
[2020-08-23 06:56] LABS: Methadone Screen,Urine Negative ng/ml (<300)
[2020-08-23 06:57] LABS: Phencyclidine Screen,Urine Negative ng/ml (<25)
[2020-08-23 06:58] LABS: Opiate Screen,Urine Negative ng/ml (<300)
--- NOTE | 2020-08-23 07:26 | P.PN_ITS ---
Internal Medicine - PN: Subj *Date: 08/23/20 *Time: 07:26 (This 34-year-old 4, para 3, Ab0 white female is admitted at 38-3/7 weeks in active labor at 7 cm of dilatation. She is cain every 2 to 3 minutes. Cervix is completely effaced, 7 cm, with the presenting vertex at -1 station. Amniotomy reveals dark meconium, and an internal monitor has been placed. She is anticipating a vaginal delivery. She has a history of gestational diabetes, diet controlled. She also has a history of idiopathic tachycardia (pulse rate 103 at this time). She is currently undergoing an epidural.) Exam Vital signs and Labs for Last 24 Hours: Temp Pulse Resp BP Pulse Ox 98.6 F 110 H 20 125/87 98 08/23/20 06:56 08/23/20 06:56 08/23/20 06:56 08/23/20 06:56 08/23/20 06:56 Laboratory Results - last 24 hr 08/23/20 05:30: Membrane Rupture Negative 08/23/20 05:47: WBC 15.8 H, RBC 3.46 L, Hgb 10.5 L, Hct 30.4 L, MCV 87.7, MCH 30.4, MCHC 34.7, RDW 13.6, Plt Count 417, MPV 8.2, Neut % (Auto) 75.3, Lymph % (Auto) 17.7, [place] % (Auto) 4.5, Eos % (Auto) 2.1, Baso % (Auto) 0.3, Neut # (Auto) 11.9 H, Lymph # (Auto) 2.8, [place] # (Auto) 0.7, Eos # (Auto) 0.3, Baso # (Auto) 0.1, Total Counted 100, Neutrophils % (Manual) 74, Lymphocytes % (Manual) 19, Monocytes % (Manual) 4, Eosinophils % (Manual) 3, Platelet Estimate Normal, RBC Morphology Normal 08/23/20 05:47: Blood Type O Positive, Antibody Screen Negative 08/23/20 06:10: Urine Opiates Screen Negative, Urine Methadone Screen Negative, Ur Barbituates Screen Negative, Ur Phencyclidine Scrn Negative, Ur Amphetamines Screen Negative, U Benzodiazepines Scrn Negative, Urine Cocaine Screen Negative, U Marijuana (THC) Screen Negative I & O for Last 24 hours: Intake & Output 08/20/20 08/21/20 08/22/20 08/23/20 11:59 11:59 11:59 11:59 Weight 132 lb
--- NOTE | 2020-08-23 07:28 | HMH.HP ---
*Admission Date: 08/23/20 *Chief complaint: Active labor *History of present illness: 34-year-old 4, para 3, Ab0 white female at 38-3/7 weeks, in active labor. She is cain every 2 to 3 minutes. She has a recent history of being diagnosed with gestational diabetes (diet-controlled)... Accu-Chek is pending. She also states that she has tachycardia (nonpregnancy related) and her pulse rate is currently 103. She was seen yesterday and discharged with false labor, but returned this morning in active labor, with intact membranes. [facility] History I have reviewed the patient's past medical history: Yes Medical History: Reports:: Anxiety, Cardiomyopathy Denies:: Cancer, Diabetes Mellitus Type 1, Diabetes Mellitus Type 2, Home Oxygen, MRSA *Have you ever received a pneumonia vaccine?: No *Have you received a flu vaccine this season?: No Other Surgeries: Yes: No Previous Surgery. No: Amputation: No Fractures: No - *Social History Smoking Status: Current every day smoker Tobacco Type: cigarettes # Packs/Day (cigarettes): 1 Alcohol Intake: never Alcohol Intake Frequency:: other Substance Use Type: denies use *Occupational Status:: unemployed Housing: house *Travel in the last 8 weeks: None - Psychiatric History Pschychiatric History:: Reports:: Anxiety Family Hx:: No significant family history Para: 3 Review of Systems - Review of Systems Review of systems:: unable to obtain, other, pertinent systems reviewed and negative unless documented below (normal) Meds Home Medications Medication Instructions Recorded Confirmed Type PNV 153-FA 400 mcg-om3 35 mg-dha 1 tab PO DAILY 01/29/20 08/23/20 History 25 mg-epa 5 mg-fish oil chew tablet Famotidine [Acid Ocean Freight Agent] 20 mg PO DAILY 07/25/20 08/23/20 History Blood Sugar Diagnostic [FreeStyle See Rx Instructions .ROUTE 08/23/20 08/23/20 History Lite Strips] .MEDSUPPLY Blood-Glucose Meter See Rx Instructions .ROUTE 08/23/20 08/23/20 History .MEDSUPPLY Lancets [Unistik Pro] See Rx Instructions .ROUTE 08/23/20 08/23/20 History .MEDSUPPLY Allergies Allergy/AdvReac Type Severity Reaction Status Date / Time No Known Allergies Allergy Verified 08/19/20 13:24 Exam Vital signs and Labs for Last 24 Hours: Temp Pulse Resp BP Pulse Ox 98.6 F 110 H 20 125/87 98 08/23/20 06:56 08/23/20 06:56 08/23/20 06:56 08/23/20 06:56 08/23/20 06:56 Laboratory Results - last 24 hr 08/23/20 05:30: Membrane Rupture Negative 08/23/20 05:47: WBC 15.8 H, RBC 3.46 L, Hgb 10.5 L, Hct 30.4 L, MCV 87.7, MCH 30.4, MCHC 34.7, RDW 13.6, Plt Count 417, MPV 8.2, Neut % (Auto) 75.3, Lymph % (Auto) 17.7, [place] % (Auto) 4.5, Eos % (Auto) 2.1, Baso % (Auto) 0.3, Neut # (Auto) 11.9 H, Lymph # (Auto) 2.8, [place] # (Auto) 0.7, Eos # (Auto) 0.3, Baso # (Auto) 0.1, Total Counted 100, Neutrophils % (Manual) 74, Lymphocytes % (Manual) 19, Monocytes % (Manual) 4, Eosinophils % (Manual) 3, Platelet Estimate Normal, RBC Morphology Normal 08/23/20 05:47: Blood Type O Positive, Antibody Screen Negative 08/23/20 06:10: Urine Opiates Screen Negative, Urine Methadone Screen Negative, Ur Barbituates Screen Negative, Ur Phencyclidine Scrn Negative, Ur Amphetamines Screen Negative, U Benzodiazepines Scrn Negative, Urine Cocaine Screen Negative, U Marijuana (THC) Screen Negative I & O for Last 24 hours: Intake & Output 08/20/20 08/21/20 08/22/20 08/23/20 11:59 11:59 11:59 11:59 Weight 132 lb - Constitutional no acute distress (in labor) - *Routine HEENT Exam Head: Present: normocephalic (normal) Eye: Present: EOMI, PERRL ENT: Present: mucous membranes moist - *Routine Respiratory Exam Present: accessory muscle use (normal), CTA bilaterally - *Routine Cardiovascular Exam Present: RRR (normal) - *Routine Abdominal Exam Present: soft (gravid) - *Routine Rectal Exam Rectal:: normal sphincter tone (normal) - *Routine Genitalia Exam Genitalia:: normal female
--- NOTE | 2020-08-23 07:37 | HMH.ACPN2 ---
Internal Medicine - PN: Subj *Date: 08/23/20 *Time: 07:37 (Epidural is now in. Baby looks good on the internal monitor. Cervix is now completely effaced, 8 cm, 0 station. Tox screen is negative.) Exam Vital signs and Labs for Last 24 Hours: Temp Pulse Resp BP Pulse Ox 98.6 F 110 H 20 125/87 98 08/23/20 06:56 08/23/20 06:56 08/23/20 06:56 08/23/20 06:56 08/23/20 06:56 Laboratory Results - last 24 hr 08/23/20 05:30: Membrane Rupture Negative 08/23/20 05:47: WBC 15.8 H, RBC 3.46 L, Hgb 10.5 L, Hct 30.4 L, MCV 87.7, MCH 30.4, MCHC 34.7, RDW 13.6, Plt Count 417, MPV 8.2, Neut % (Auto) 75.3, Lymph % (Auto) 17.7, [place] % (Auto) 4.5, Eos % (Auto) 2.1, Baso % (Auto) 0.3, Neut # (Auto) 11.9 H, Lymph # (Auto) 2.8, [place] # (Auto) 0.7, Eos # (Auto) 0.3, Baso # (Auto) 0.1, Total Counted 100, Neutrophils % (Manual) 74, Lymphocytes % (Manual) 19, Monocytes % (Manual) 4, Eosinophils % (Manual) 3, Platelet Estimate Normal, RBC Morphology Normal 08/23/20 05:47: Blood Type O Positive, Antibody Screen Negative 08/23/20 06:10: Urine Opiates Screen Negative, Urine Methadone Screen Negative, Ur Barbituates Screen Negative, Ur Phencyclidine Scrn Negative, Ur Amphetamines Screen Negative, U Benzodiazepines Scrn Negative, Urine Cocaine Screen Negative, U Marijuana (THC) Screen Negative I & O for Last 24 hours: Intake & Output 08/20/20 08/21/20 08/22/20 08/23/20 11:59 11:59 11:59 11:59 Weight 132 lb
--- NOTE | 2020-08-23 08:03 | P.PN_ITS ---
Internal Medicine - PN: Subj *Date: 08/23/20 *Time: 08:03 (Cervix now completely effaced, 9 cm, +1 station.) Exam Vital signs and Labs for Last 24 Hours: Temp Pulse Resp BP Pulse Ox 98.6 F 110 H 20 125/87 98 08/23/20 06:56 08/23/20 06:56 08/23/20 06:56 08/23/20 06:56 08/23/20 06:56 Laboratory Results - last 24 hr 08/23/20 05:30: Membrane Rupture Negative 08/23/20 05:47: WBC 15.8 H, RBC 3.46 L, Hgb 10.5 L, Hct 30.4 L, MCV 87.7, MCH 30.4, MCHC 34.7, RDW 13.6, Plt Count 417, MPV 8.2, Neut % (Auto) 75.3, Lymph % (Auto) 17.7, [place] % (Auto) 4.5, Eos % (Auto) 2.1, Baso % (Auto) 0.3, Neut # (Auto) 11.9 H, Lymph # (Auto) 2.8, [place] # (Auto) 0.7, Eos # (Auto) 0.3, Baso # (Auto) 0.1, Total Counted 100, Neutrophils % (Manual) 74, Lymphocytes % (Manual) 19, Monocytes % (Manual) 4, Eosinophils % (Manual) 3, Platelet Estimate Normal, RBC Morphology Normal 08/23/20 05:47: Blood Type O Positive, Antibody Screen Negative 08/23/20 06:10: Urine Opiates Screen Negative, Urine Methadone Screen Negative, Ur Barbituates Screen Negative, Ur Phencyclidine Scrn Negative, Ur Amphetamines Screen Negative, U Benzodiazepines Scrn Negative, Urine Cocaine Screen Negative, U Marijuana (THC) Screen Negative I & O for Last 24 hours: Intake & Output 08/20/20 08/21/20 08/22/20 08/23/20 11:59 11:59 11:59 11:59 Weight 132 lb
[2020-08-23 08:14] LABS: POC Glucose,Bedside 115 (70-110)
--- NOTE | 2020-08-23 08:32 | HMH.PHAINT ---
MEDICATION RECONCILIATION COMPLETED ON PATIENT USING EXTERNAL FILL HISTORY FROM PHARMACY. -MARIBELL PRIEST, SHANAED
--- NOTE | 2020-08-23 08:55 | HMH.DN ---
- Delivery Note Delivery Date:: 08/23/20 Delivery Time:: 08:48 Anesthesia Type: Epidural Was labor medically induced?: No Induction method: none Gestational age (weeks): 38 Infant delivered prior to 39 weeks?: Yes Justification for early elective delivery:: Active Labor Infant Gender: Female at 1 minute: 8 at 5 minutes: 9 Suction Catheter Type: [place] AF:: thick meconium Delivery Procedure:: This 34-year-old 4, now para 4, Ab0 white female was admitted at 38-3/7 weeks in active labor at 6 to 7 cm of dilatation. She had a history of gestational diabetes (diet-controlled), and her Accu-Chek was 115. Proximally was negative. Covid screen was negative. Hemoglobin 10.5 g, but clinically stable. Upon artificial rupture of membranes, thick meconium was noted. The patient underwent a labor epidural, which worked well. The baby continues to look good throughout her labor. She went steadily to completion and delivered spontaneously, without an episiotomy, at 0848. Thick meconium was noted. The baby's nasal and oropharynx were bulb suctioned, and then DeLee suction, on the perineum, cord was clamped and cut, 3 vessels were noted to be within the cord, and cord blood was obtained. The cord pH is pending. The baby was handed into the arms of the attending clean room operator, Dr. Carrion, who assigned Apgars of 8 at 1 minute and 9 at 5 minutes to this female infant (weight in length pending), born at 0848. The placenta delivered spontaneously, intact. The uterus was inspected, and found to be clean, and was involuting well, with IV Pitocin running there were no lacerations. The rectovaginal septum was intact at the close of the procedure. The patient tolerated the procedure well, and was recovered in excellent condition. She is Rh+. Her rubella titer is immune. She plans to breast-feed. Placental Delivery Description: Spontaneous (intact)
[2020-08-23 09:11] LABS: Cord Blood PH 7.43 (7.35-7.45)
[2020-08-23 09:31] LABS: Hematocrit 28.7 % (37.0-47.0); Hemoglobin 9.6 g/dL (12.2-16.2)
[2020-08-23 14:09] LABS: Hemoglobin 9.3 g/dL (12.2-16.2)
[2020-08-23 20:15] VITALS: BP 139/77; PULSE 106; RESP 17; TEMP 36.7; O2SAT 99
[2020-08-24 04:06] VITALS: BP 135/78; PULSE 99; RESP 16; TEMP 36.7; O2SAT 100
[2020-08-24 06:39] LABS: Hematocrit 24.5 % (37.0-47.0); Hemoglobin 8.4 g/dL (12.2-16.2)
--- NOTE | 2020-08-24 08:13 | HMH.ACPN2 ---
Internal Medicine - PN: Subj *Date: 08/24/20 *Time: 08:13 (This is day #1. The patient is afebrile. Vital signs stable. Abdomen soft. Lochia normal. Uterine fundus involuting well. Hemoglobin on admission was 10.5 g; most recent hemoglobin 8.4 g, but clinically stable. Still attempting to breast-feed. Impression: Stable. Dr. Neil will assume her care tomorrow.) Exam Vital signs and Labs for Last 24 Hours: Temp Pulse Resp BP Pulse Ox 98.1 F 99 H 16 135/78 100 08/24/20 04:06 08/24/20 04:06 08/24/20 04:06 08/24/20 04:06 08/24/20 04:06 Laboratory Results - last 24 hr 08/23/20 05:47: Blood Type O Positive, Antibody Screen Negative, Crossmatch (AHG) See Detail 08/23/20 06:10: Urine Opiates Screen Negative, Urine Methadone Screen Negative, Ur Barbituates Screen Negative, Ur Phencyclidine Scrn Negative, Ur Amphetamines Screen Negative, U Benzodiazepines Scrn Negative, Urine Cocaine Screen Negative, U Marijuana (THC) Screen Negative 08/23/20 08:06: POC Glucose 115 H 08/23/20 09:25: Hgb 9.6 L, Hct 28.7 L 08/23/20 13:58: Hgb 9.3 L, Hct 28.0 L 08/23/20 : Cord ABG pH 7.43 08/24/20 06:16: Hgb 8.4 L, Hct 24.5 L I & O for Last 24 hours: Intake & Output 08/21/20 08/22/20 08/23/20 08/24/20 11:59 11:59 11:59 11:59 Weight 132 lb
[2020-08-24 20:00] VITALS: BP 131/84; PULSE 107; RESP 18; TEMP 36.8; O2SAT 99
[2020-08-25 04:06] VITALS: BP 137/75; PULSE 95; RESP 16; TEMP 36.6; O2SAT 100
--- NOTE | 2020-08-25 09:03 | HMH.OBDCSM ---
General - General Admission date:: 08/23/20 Discharge date: 08/25/20 HPI - History of Present Illness History of present illness: She is a 34-year-old 4 now para 4 at 38 and 3 weeks gestational age. She arrived in active labor. Hospital Course Hospital Course: She arrived in active labor and progressed to full dilation. She delivered spontaneously a liveborn female child at 8:48 AM on the morning of August 23, 2020. The baby weighed 7 pounds 3 ounces and had Apgars of 8 at 1 minute and 9 at 5 minutes. She has done well and has remained afebrile throughout her hospitalization. She has O+ blood, she is rubella immune and was group B streptococcus negative. She plans to breast and bottle feed. Her hazardous material technician is Dr. Carrion. She is discharged home to follow-up with me in approximately 2 weeks time. She will continue with her vitamins and iron. She is given the usual instructions with respect to limiting her activity, driving and sexual activity. Her condition on discharge is stable and improved. Rhogam Administration: Not Indicated Objective Vital signs: Temp Pulse Resp BP Pulse Ox 97.9 F 95 H 16 137/75 100 08/25/20 04:06 08/25/20 04:06 08/25/20 04:06 08/25/20 04:06 08/25/20 04:06 no acute distress - *Routine HEENT Exam Head: Present: normocephalic Eye: Present: EOMI, PERRL ENT: Present: mucous membranes moist - *Routine Neck Exam Present: supple - *Routine Respiratory Exam Present: CTA bilaterally - *Routine Cardiovascular Exam Present: RRR - *Routine Abdominal Exam Present: soft, normoactive bowel sounds. Absent: tenderness - *Routine Extremities Exam Absent: cyanosis, clubbing, edema - *Routine Skin Exam Present: warm. Absent: rash - Detailed Eye Exam Eyelids: Bilateral normal inspection DS: Diagnosis - Discharge Diagnosis (1) Normal delivery Status: Acute Discharge Plan - Patient Discharge Instructions ACTIVITY: No heavy lifting DIET: continue same diet Additional Instructions: Nothing in the vagina for 6 weeks Drink plenty of water No tub baths Patient Instructions: Depression, Hemorrhage, DI for Labor and Delivery, Vaginal , DI for Pre-eclampsia, [facility] Post Discharge Instructions, Preventing the Spread of Coronavirus Discharge Instructions - Follow up Plan Follow up with: Ronni Neil MD [Staff Physician] - Disposition: Home, Self-Care Condition at discharge:: Stable Home Medications: Home Medications Medication Instructions Recorded Confirmed Type PNV 153-FA 400 mcg-om3 35 mg-dha 1 tab PO DAILY 01/29/20 08/23/20 History 25 mg-epa 5 mg-fish oil chew tablet Famotidine [Acid Carbonation Tester] 20 mg PO DAILY 07/25/20 08/23/20 History Prescriptions/Medication Reconciliation: Continued PNV 153-FA 400 mcg-om3 35 mg-dha 25 mg-epa 5 mg-fish oil chew tablet 1 tab PO DAILY Famotidine [Acid Carbonation Tester] 20 mg PO DAILY - Problem Reconciliation Problems Reviewed?: Yes
== END 2020-08-25 11:30 | disposition home or self-care (01) | DRG 807 ==
LOC: OBOUT 05:55 → OB 05:55
PROVIDERS: Obstetrics & Gynecology; Admitting Provider Obstetrics & Gynecology; PCP Physician Assistant; Referring Provider Nurse Practitioner Obstetrics & Gynecology; Visit Provider Obstetrics & Gynecology
DX: O24.420 Gestational diabetes mellitus in childbirth, diet controlled (principal); Z37.0 Single live birth; Z3A.38 38 weeks gestation of pregnancy
CPT/HCPCS: 59409; 36415; 59025; 80305; 81001; 82800; 82962; 84112; 85007; 85014; 85018; 85025; 86850; 87086; 94761; 96365; C1758; G0283; G0463; U0003

== ENCOUNTER 2021-01-06 00:08 | Emergency (ER) | payer MEDICAID, SELFPAY ==
[2021-01-06 00:09] VITALS: BP 167/87; PULSE 112; RESP 16; TEMP 36.6; O2SAT 98; BMI 22.1
[2021-01-06 00:38] VITALS: BP 155/96; PULSE 111; O2SAT 100
[2021-01-06 00:40] LABS: Microscopic, Urine URINE MICROSCOPIC (MICROSCOPIC)
[2021-01-06 00:41] LABS: Basophils # 0.1 K/mm3 (0-0.2); Basophils % 1.1 % (0.1-2.0); Eosinophils # 0.6 K/mm3 (0.0-0.4); Eosinophils % 5.6 % (0.1-12.0); Hematocrit 43.9 % (37.0-47.0); Lymphocytes # 3.4 K/mm3 (0.7-4.5); Lymphocytes % 29.8 % (10-50); Mean Corpuscular Hemoglobin 27.3 pg (27.0-31.2); Mean Corpuscular Volume 85.5 fl (81-99); Mean Platelet Volume 7.8 fl (7.4-10.4); Monocytes # 0.4 K/mm3 (0.1-1.0); Monocytes % 3.7 % (1.7-9.3); Neutrophils # 6.8 K/mm3 (1.8-7.8); Neutrophils % 59.8 % (37.0-80.0); Platelet Count 426 K/mm3 (142-424); Red Blood Count 5.13 M/mm3 (4.20-5.40); Red Cell Distribution Width 16.6 % (11.5-17.5); White Blood Count 11.4 K/mm3 (4.8-10.8)
[2021-01-06 00:43] LABS: Appearance,Urine CLEAR (Clear); Bilirubin,Urine Negative (Negative); Blood, Urine 2+ (Negative); Color,Urine YELLOW (Yellow); Glucose,Urine (UA) Negative (Negative); Ketones,Urine Negative (Negative); Leukocyte Esterase,Urine Negative (Negative); Nitrate,Urine Negative (Negative); Protein,Urine Negative (Negative); Urobilinogen,Urine 0.2 EU/dl (0.2)
[2021-01-06 00:48] LABS: Urine Pregnancy, HCG Qual. Negative (Negative)
[2021-01-06 00:51] LABS: Alanine Aminotransferase 20 U/L (12-78); Albumin Level 4.5 g/dl (3.5-5.0); Albumin/Globulin Ratio 1.3 (1.1-1.8); Alkaline Phosphatase 128 U/L (38-126); Anion Gap 16.5 mEq/L (5-15); Aspartate Amino Transferase 22 U/L (14-36); Bilirubin,Total 0.3 mg/dl (0.2-1.3); Blood Urea Nitrogen 5 mg/dl (7-17); Calcium 9.7 mg/dl (8.4-10.2); Carbon Dioxide 23 mmol/L (22.0-30.0); Chloride 107 mmol/L (98-107); Creatinine Clearance Estimated 118 mL/min (50-200); Estimated Glomerular Filt Rate 114 ml/min (>60); GFR (African American) 138 ML/MIN (>60); Globulin 3.6 g/dL (1.3-3.2); Glucose 130 mg/dl (74-100); Potassium 3.5 mmoL/L (3.5-5.1); Sodium 143 mmol/L (136-145); Total Protein,Serum 8.1 g/dl (6.3-8.2)
[2021-01-06 00:56] LABS: C-Reactive Protein 18.3 mg/L (0-4)
[2021-01-06 00:59] LABS: Bacteria,Urine Trace /lpf; WBC,Urine Occasional #/hpf (0-3)
[2021-01-06 01:00] VITALS: BP 154/96; PULSE 105; RESP 20; O2SAT 98
[2021-01-06 01:09] LABS: Erythrocyte Sedimentation Rate 27 mm/hr (0-20)
--- NOTE | 2021-01-06 01:11 | HMH.EDANX ---
ED Disposition Clinical Impression: Acute anxiety Disposition: Home, Self-Care Condition on Discharge: Good Instructions: Anxiety Disorders Additional Instructions: call pcp this am Referrals: Rachle Logan PA [Primary Care Provider] - - Critical Care Critical Care Time: No Attestation: On 01/06/21, the high probability of a clinically significant, sudden or life threatening deterioration of the following system(s) required my full and direct attention, intervention and personal management. The time I documented below is in addition to time spent performing reported procedures but includes the following listed in this critical care notation. Medical Decision Making - Medical Records Medical records reviewed: Yes: I reviewed the patient's medical records. - Lawson Inquiry Pt receiving controlled substance: No Vital Signs: 01/06/21 00:09 01/06/21 00:38 01/06/21 01:00 Temperature 98 F Temperature Source Oral Pulse Rate 111 H 105 H Pulse Rate [Right] 112 H Respiratory Rate 16 20 Blood Pressure 155/96 H 154/96 H Blood Pressure [Right Arm] 167/87 H Blood Pressure Mean 124 115 Blood Pressure Mean [Right Arm] 113 02 Sat by Pulse Oximetry 98 100 98 Oxygen Delivery Method Room Air Room Air - Lab Data Lab results reviewed: Yes: I reviewed the patient's lab results. Lab Results 01/06/21 00:34: WBC 11.4 H, RBC 5.13, Hgb 14.0, Hct 43.9, MCV 85.5, MCH 27.3, MCHC 32.0, RDW 16.6, Plt Count 426 H, MPV 7.8, Neut % (Auto) 59.8, Lymph % (Auto) 29.8, [place] % (Auto) 3.7, Eos % (Auto) 5.6, Baso % (Auto) 1.1, Neut # (Auto) 6.8, Lymph # (Auto) 3.4, [place] # (Auto) 0.4, Eos # (Auto) 0.6 H, Baso # (Auto) 0.1, ESR 27 H 01/06/21 00:34: Sodium 143, Potassium 3.5, Chloride 107, Carbon Dioxide 23, Anion Gap 16.5 H, BUN 5 L, Creatinine 0.60, Estimated Creat Clear 118, Estimated GFR 114, Est GFR ( Amer) 138, Glucose 130 H, Calcium 9.7, Total Bilirubin 0.3, AST 22, ALT 20, Alkaline Phosphatase 128 H, C-Reactive Protein 18.3 H, Total Protein 8.1, Albumin 4.5, Globulin 3.6 H, Albumin/Globulin Ratio 1.3 01/06/21 00:37: Urine Color Yellow, Urine Appearance Clear, Urine pH 6.0, Ur Specific [place] 1.010, Urine Protein Negative, Urine Glucose (UA) Negative, Urine Ketones Negative, Urine Blood 2+, Urine Nitrate Negative, Urine Bilirubin Negative, Urine Urobilinogen 0.2, Ur Leukocyte Esterase Negative, Urine RBC 3-5, Urine WBC Occasional, Urine Bacteria Trace 01/06/21 00:37: Urine HCG, Qual Negative Result diagrams: 01/06/21 00:34 01/06/21 00:34 Orders (Tests/Meds): ED MEDICATIONS Generic Name Dose Route Start Last Admin Trade Name Freq PRN Reason Stop Dose Admin Lorazepam 1 mg 01/06/21 01:16 Lorazepam 1mg Tablet PO 01/06/21 01:17 ONCE ONE ORDERS Category Date Time Status Drug Screen,Urine Stat Lab 01/06/21 00:37 Received Anxiety HPI - General Chief Complaint: Anxiety Stated Complaint: anxiety Time Seen by Provider: 01/06/21 01:00 Mode of Arrival: Ambulatory Source of Information: Patient, Medical Record Limitations: No Limitations Description of Symptoms (Recalled from ER Triage Doc. by RN): pt c/o feeling jittery and anixous pt has history of anixety and has appointment on tuesday with pcp - History of Present Illness HPI narrative: has anxiety and pending appt with pcp complaint: anxiety Onset (ago): day(s) Severity: moderate Place: home History of similar episodes: Yes Provoking factors: emotional stress Associated symptoms: denies other symptoms - Related Data Home Medications: Home Medications Medication Instructions Recorded Confirmed Medroxyprogesterone Acetate 150 mg IM [id number] 01/06/21 01/06/21 [Depo-Provera] Allergies/Adverse Reactions: Allergies Allergy/AdvReac Type Severity Reaction Status Date / Time No Known Allergies Allergy Verified 01/06/21 00:18 [facility] History - Hepatitis A Screen Drug use history?: No High risk s
[2021-01-06 01:16] LABS: Amphetamine/Metha Screen,Urine Negative ng/ml (<1000)
[2021-01-06 01:17] LABS: Barbiturates Screen,Urine Negative ng/ml (<200); Benzodiazepines Screen,Urine Negative ng/ml (<200)
[2021-01-06 01:18] LABS: Cannabinoid Screen,Urine Negative ng/ml (<50)
[2021-01-06 01:19] LABS: Cocaine Screen,Urine Negative ng/ml (<300); Methadone Screen,Urine Negative ng/ml (<300)
[2021-01-06 01:21] VITALS: BP 154/96; PULSE 88; RESP 16; TEMP 36.9; O2SAT 98
[2021-01-06 01:22] LABS: Opiate Screen,Urine Negative ng/ml (<300)
[2021-01-06 01:23] LABS: Phencyclidine Screen,Urine Negative ng/ml (<25)
== END 2021-01-06 01:22 | disposition home or self-care (01) ==
PROVIDERS: Emergency Provider Emergency Medicine; PCP Physician Assistant
DX: F41.0 Panic disorder [episodic paroxysmal anxiety] (principal); I42.8 Other cardiomyopathies; F17.210 Nicotine dependence, cigarettes, uncomplicated
CPT/HCPCS: 80053; 80305; 81001; 81025; 85025; 85651; 86140; 99281

== ENCOUNTER → 2021-01-15 18:08 | Outpatient (CLI) | payer MEDICAID, SELFPAY ==
[2021-01-15 19:04] LABS: Basophils # 0.1 K/mm3 (0-0.2); Basophils % 0.9 % (0.1-2.0); Eosinophils # 0.5 K/mm3 (0.0-0.4); Eosinophils % 3.4 % (0.1-12.0); Hematocrit 43.9 % (37.0-47.0); Hemoglobin 14.1 g/dL (12.2-16.2); Lymphocytes # 3.4 K/mm3 (0.7-4.5); Lymphocytes % 24.6 % (10-50); Mean Corpuscular Hemoglobin 27.4 pg (27.0-31.2); Mean Corpuscular Volume 85.5 fl (81-99); Mean Platelet Volume 8.4 fl (7.4-10.4); Monocytes # 0.5 K/mm3 (0.1-1.0); Monocytes % 3.4 % (1.7-9.3); Neutrophils # 9.3 K/mm3 (1.8-7.8); Neutrophils % 67.7 % (37.0-80.0); Platelet Count 549 K/mm3 (142-424); Red Blood Count 5.13 M/mm3 (4.20-5.40); Red Cell Distribution Width 15.4 % (11.5-17.5); White Blood Count 13.7 K/mm3 (4.8-10.8)
[2021-01-15 22:36] LABS: Alanine Aminotransferase 18 U/L (12-78); Albumin Level 4.6 g/dl (3.5-5.0); Albumin/Globulin Ratio 1.5 (1.1-1.8); Alkaline Phosphatase 142 U/L (38-126); Anion Gap 15.2 mEq/L (5-15); Aspartate Amino Transferase 22 U/L (14-36); Bilirubin,Total 0.6 mg/dl (0.2-1.3); Blood Urea Nitrogen 4 mg/dl (7-17); Calcium 9.7 mg/dl (8.4-10.2); Carbon Dioxide 24 mmol/L (22.0-30.0); Chloride 104 mmol/L (98-107); Estimated Glomerular Filt Rate 96 ml/min (>60); GFR (African American) 116 ML/MIN (>60); Globulin 3.1 g/dL (1.3-3.2); Glucose 85 mg/dl (74-100); Potassium 4.2 mmoL/L (3.5-5.1); Sodium 139 mmol/L (136-145); Total Protein,Serum 7.7 g/dl (6.3-8.2)
[2021-01-15 22:53] LABS: Free T4 (Free Thyroxine) 2.12 ng/dl (0.78-2.19)
[2021-01-15 23:06] LABS: Thyroid Stimulating Hormone 0.07 uIU/mL (0.465-4.68)
[2021-01-17 08:37] LABS: Triiodothyronine (T3) Free 3.6 pg/mL (2.0-4.4)
== END ==
PROVIDERS: Visit Provider Physician Assistant
DX: R00.0 Tachycardia, unspecified (principal); F41.9 Anxiety disorder, unspecified
CPT/HCPCS: 80053; 84439; 84443; 84481; 85025

== ENCOUNTER → 2021-01-22 12:17 | Outpatient (CLI) | payer MEDICAID, SELFPAY ==
[2021-01-23 11:16] LABS: Thyroid Peroxidase Antibodies <8 IU/mL (0-34)
[2021-01-24 07:11] LABS: Thyroid Stimulating Immunoglob <0.10 IU/L (0.00-0.55)
== END ==
PROVIDERS: Visit Provider Physician Assistant
DX: R89.9 Unspecified abnormal finding in specimens from other organs, systems and tissues (principal)
CPT/HCPCS: 36415; 84445; 86376

== ENCOUNTER → 2021-02-11 13:21 | Outpatient (CLI) | payer MEDICAID, SELFPAY ==
--- NOTE | 2021-02-11 13:21 | US_ITS ---
PROCEDURE: US THYROID CLINICAL INDICATION: Abnormal lab values COMPARISON: No exams were available for comparison FINDINGS: Right lobe: 4.7 x 1.4 x 2.5 cm. 4 mm upper pole region. 3 mm cyst mid polar region. 3 mm cyst mid polar region. 6 mm hypoechoic nodule lower pole anteriorly wider than tall well-circumscribed. 10 mm mixed nodule lower pole isoechoic. 8 mm spongiform nodule lower pole well-circumscribed. Left lobe: 4.3 x 1.4 x 1.9 cm. Scattered small cystic nodules are present. Isoechoic 6 mm nodule mid polar region well-circumscribed wider than tall. Hypoechoic 6 mm nodule lower pole wider than tall well-circumscribed. Isthmus: Unremarkable Additional findings: IMPRESSION: Numerous small bilateral thyroid nodules as described above. These have a low level of suspicion for malignancy. Consider 12 month follow-up to confirm stability. Dictated by: Gerardo Blanchard MD 02/11/2021 18:01 Gerardo Blanchard MD in [place] 02/11/2021 18:01
== END ==
PROVIDERS: PCP Physician Assistant; Visit Provider Physician Assistant
DX: R89.9 Unspecified abnormal finding in specimens from other organs, systems and tissues (principal)
CPT/HCPCS: 76536

== ENCOUNTER 2021-03-28 14:00 | Emergency (ER) | payer MEDICAID, SELFPAY ==
[2021-03-28 14:58] VITALS: BP 130/90; PULSE 109; RESP 16; TEMP 36.6; O2SAT 16; BMI 18.3
[2021-03-28 15:03] LABS: POC Glucose,Bedside 94 (70-110)
--- NOTE | 2021-03-28 17:03 | HMH.EDUTC ---
[facility] – [place] Disposition Clinical Impression: Syncopal episodes Qualifiers: Syncope type: vasovagal syncope Qualified Code(s): R55 - Syncope and collapse Disposition: Left Without Being Seen Condition on Discharge: Good (She should not be charged for this visit. She was not seen by the ER and she left before being properly evaluated.) Referrals: Rachel Logan PA [Primary Care Provider] - Medical Decision Making - Medical Records Medical records reviewed: No: I reviewed the patient's medical records. - Lawson Inquiry Pt receiving controlled substance: No Vital Signs: 03/28/21 14:58 Temperature 98 F Temperature Source Oral Pulse Rate [Radial] 109 H Respiratory Rate 16 Blood Pressure [Right Arm] 130/90 Blood Pressure Mean [Right Arm] 103 Blood Pressure Position [Right Arm] Sitting 02 Sat by Pulse Oximetry 16 L Oxygen Delivery Method Room Air - Lab Data Lab Results 03/28/21 14:56: POC Glucose 94 [facility] [place] HPI - General Stated complaint: syncope Time Seen by Provider: 03/28/21 15:00 Mode of Arrival: Ambulatory Source of Information: Patient Limitations: No Limitations Description of Symptoms (Recalled from Triage Doc. by RN): PT REFERRED TO [facility] TO HAVE COVID TEST STATES SITTING WAITING AND WAS NAUSEATED STATES SHE HAD NO PO INTAKE TODAY TOLD STAFF THAT SHE WAS GOING TO PASS OUT. HAD A SYNCOPAL EPISODE AFTER SHE WOKE UP VOMITED X 1 AND STATES SYMPTOMS HAVE IMPROVED. STATES SHE HAS BEEN EXPOSED TO MOTHER WHO HAS COVID AND WANTED TESTED BECAUSE SHE HAS A 7 MONTH OLD CHILD AT HOME. PT STATES ONLY SYMPTOMS ARE BODY ACHES. PT STATES SHE HAS A HX OF TACHYCARDIA AND TAKES A BETA GEN - History of Present Illness Provider Complaint: She was sent here to be evaluated in the emergency room after passing out at the [facility] clinic at [facility]. She states that she was getting ready to be swabbed for covid-19 (due to an exposure, not symptoms) when she became light headed, nauseated and then she passed completely out. She thinks that she was out for about 1 minute, but she is not completely sure. She was already sitting down, so she did not fall or injure herself. She refused ambulance transportation to the Er, so she arrived by private car. She denies any complaints now other than having a mild headache. She has not been swabbed for covid-19 since she passed out before the swab could be obtained. - Related Data Home Medications Medication Instructions Recorded Confirmed aspirin 81 mg tablet,delayed 81 mg PO DAILY 01/06/21 03/28/21 release Previous Rx's Medication Instructions Recorded propranolol 80 mg capsule,24 80 mg PO DAILY #30 cap 01/16/21 hr,extended release fluoxetine 20 mg capsule 20 mg PO DAILY #90 cap 02/02/21 hydroxyzine HCl 25 mg tablet 25 mg PO TID PRN #90 tab 02/27/21 Allergies Allergy/AdvReac Type Severity Reaction Status Date / Time No Known Allergies Allergy Verified 03/28/21 12:55 [facility] History - Hepatitis A Screen Attestation statement:: This patient has been screened for Hepatitis A risk factors. I have reviewed the patient's past medical history: Yes Medical History: Reports:: Anxiety, Cancer, Cardiomyopathy Denies:: Diabetes Mellitus Type 1, Diabetes Mellitus Type 2, Home Oxygen, MRSA Other Surgeries: Yes: No Previous Surgery. No: Amputation: No Fractures: No - Social History Smoking Status: Current every day smoker Tobacco Type: cigarettes # Packs/Day (cigarettes): 1 Alcohol Intake: never Alcohol Intake Frequency:: other Substance Use Type: denies use Occupational Status: unemployed Housing: house - Psychiatric History Pschychiatric History:: Reports:: Anxiety Family Hx:: No significant family history ROS Obtained: Yes All systems reviewed & no additional complaints Physical Exam - General General appearance: alert, in no apparent distress - Head Head exam: atraumatic, normocephalic, normal inspection
[2021-03-28 17:43] VITALS: BP 0/0; PULSE 0; RESP 0; TEMP -17.7; TEMP 0
== END 2021-03-28 17:44 | disposition left against medical advice (07) ==
LOC: UTC 14:02 → ER 14:43 → UTC 14:56
PROVIDERS: Emergency Provider Nurse Practitioner Family; PCP Physician Assistant
DX: U07.1 COVID-19 (principal)
CPT/HCPCS: 82962; C9803; U0003; U0005

== ENCOUNTER → 2022-04-21 13:38 | Outpatient (CLI) | payer MEDICAID, SELFPAY ==
[2022-04-23 09:29] LABS: Progesterone 19.1 ng/mL (.)
== END ==
PROVIDERS: PCP Physician Assistant; Visit Provider Nurse Practitioner Obstetrics & Gynecology
DX: N92.6 Irregular menstruation, unspecified (principal); Z32.00 Encounter for pregnancy test, result unknown
CPT/HCPCS: 36415; 84144; 84702

== ENCOUNTER → 2022-05-05 16:45 | Outpatient (CLI) | payer MEDICAID, SELFPAY ==
[2022-05-05 20:39] LABS: Barbiturates Screen,Urine Negative ng/ml (<200)
[2022-05-05 20:40] LABS: Amphetamine/Metha Screen,Urine Negative ng/ml (<1000); Benzodiazepines Screen,Urine Negative ng/ml (<200)
[2022-05-05 20:41] LABS: Cocaine Screen,Urine Negative ng/ml (<300)
[2022-05-05 20:42] LABS: Cannabinoid Screen,Urine Negative ng/ml (<50); Methadone Screen,Urine Negative ng/ml (<300)
[2022-05-05 20:43] LABS: Opiate Screen,Urine Negative ng/ml (<300)
[2022-05-05 20:44] LABS: Phencyclidine Screen,Urine Negative ng/ml (<25)
== END ==
PROVIDERS: Visit Provider Nurse Practitioner Obstetrics & Gynecology
DX: Z34.90 Encounter for supervision of normal pregnancy, unspecified, unspecified trimester (principal)
CPT/HCPCS: 80305; 87086

== ENCOUNTER → 2022-06-02 13:21 | Outpatient (CLI) | payer MEDICAID, SELFPAY ==
[2022-06-02 14:29] LABS: Basophils # 0.1 K/mm3 (0-0.2); Basophils % 1.1 % (0.1-2.0); Eosinophils # 0.4 K/mm3 (0.0-0.4); Eosinophils % 3.2 % (0.1-12.0); Hematocrit 33.9 % (37.0-47.0); Hemoglobin 11.5 g/dL (12.2-16.2); Lymphocytes # 2.8 K/mm3 (0.7-4.5); Lymphocytes % 25.1 % (10-50); Mean Corpuscular HGB Conc 33.9 g/dL (31.8-35.4); Mean Corpuscular Hemoglobin 30.8 pg (27.0-31.2); Mean Corpuscular Volume 90.7 fl (81-99); Mean Platelet Volume 7.2 fl (7.4-10.4); Monocytes # 0.4 K/mm3 (0.1-1.0); Monocytes % 3.6 % (1.7-9.3); Neutrophils # 7.5 K/mm3 (1.8-7.8); Platelet Count 385 K/mm3 (142-424); Red Blood Count 3.74 M/mm3 (4.20-5.40); Red Cell Distribution Width 13.7 % (11.5-17.5); White Blood Count 11.2 K/mm3 (4.8-10.8)
[2022-06-04 08:56] LABS: Rubella Antibodies, IgG 1.05 index (Immune >0.99)
[2022-06-04 10:41] LABS: HIV Screen 4th Generation wRfx Non Reactive (Non Reactive); Rapid Plasma Reagin Ab Titer Non Reactive (NonRea<1:1)
[2022-06-05 01:07] LABS: Hepatitis B Surface Antigen Negative; Hepatitis C Antibody Non Reactive
== END ==
PROVIDERS: PCP Physician Assistant; Visit Provider Nurse Practitioner Obstetrics & Gynecology
DX: Z34.90 Encounter for supervision of normal pregnancy, unspecified, unspecified trimester (principal)
CPT/HCPCS: 36415; 85025; 86593; 86703; 86762; 86850; 87340; 87380; G0432

== ENCOUNTER → 2022-06-09 13:30 | Outpatient (CLI) | payer MEDICAID, SELFPAY ==
--- NOTE | 2022-06-09 13:30 | US_ITS ---
FINAL REPORT CLINICAL HISTORY: for dates FINDINGS: There is a single live intrauterine gestation. Presentation is breech. The cervix is closed and measures 3 cm. The placenta covers the cervix consistent with a previa. The placenta is otherwise posterior. movement is noted. Heart rate is 160 beats per minute. MEASUREMENTS: ULTRASOUND AGE: 19 weeks 3 days. ESTIMATED WEIGHT: 288 g BPD: 4.53 cm corresponding to 19 weeks 5 days. OFD: 5.80 cm corresponding to 20 weeks 0 days. HC: 16.35 cm corresponding to 19 weeks 1 day. AC: 14.51 cm corresponding to 19 weeks 6 days. FL: 2.88 cm corresponding to 18 weeks 6 days. HUMERUS: 2.94 cm corresponding to 19 weeks 5 days. HC/AC: 1.13 CI: 78% FL/BPD: 64% FL/AC: 20% IMPRESSION: Single living IUP with an ultrasound age of 19 weeks 3 days. Posterior placenta with placenta previa. Reviewed, Interpreted and Dictated by Yaneth Holbrook MD Transcribed by Zarina Rodriguez Authenticated and [facility]
== END ==
PROVIDERS: PCP Physician Assistant; Visit Provider Nurse Practitioner Obstetrics & Gynecology
DX: Z34.90 Encounter for supervision of normal pregnancy, unspecified, unspecified trimester (principal)
CPT/HCPCS: 76805

== ENCOUNTER 2022-07-28 21:29 | Outpatient (CLI) | payer MEDICAID, SELFPAY ==
[2022-07-28 21:39] VITALS: BP 142/82; PULSE 116; RESP 18; TEMP 37; O2SAT 99
[2022-07-28 21:40] VITALS: BMI 22.8
[2022-07-28 21:59] VITALS: BP 142/82; PULSE 116; RESP 18; TEMP 37; O2SAT 99; BMI 22.8
[2022-07-28 21:59] LABS: Microscopic, Urine URINE MICROSCOPIC (MICROSCOPIC)
[2022-07-28 22:05] LABS: Appearance,Urine CLEAR (Clear); Bilirubin,Urine Negative (Negative); Blood, Urine 1+ (Negative); Color,Urine YELLOW (Yellow); Glucose,Urine (UA) Negative (Negative); Ketones,Urine Negative (Negative); Leukocyte Esterase,Urine TRACE (Negative); Nitrate,Urine Negative (Negative); PH,Urine 6.5 (5.0-8.5); Protein,Urine 1+ (Negative); Urobilinogen,Urine 0.2 EU/dl (0.2)
[2022-07-28 22:18] LABS: Bacteria,Urine 1+ /lpf; WBC,Urine Occasional #/hpf (0-3)
[2022-07-28 22:20] LABS: Amphetamine/Metha Screen,Urine Negative ng/ml (<1000); Barbiturates Screen,Urine Negative ng/ml (<200)
[2022-07-28 22:21] LABS: Benzodiazepines Screen,Urine Negative ng/ml (<200)
[2022-07-28 22:22] LABS: Cannabinoid Screen,Urine Negative ng/ml (<50); Cocaine Screen,Urine Negative ng/ml (<300)
[2022-07-28 22:23] LABS: Methadone Screen,Urine Negative ng/ml (<300)
[2022-07-28 22:24] LABS: Opiate Screen,Urine Negative ng/ml (<300); Phencyclidine Screen,Urine Negative ng/ml (<25)
[2022-07-28 22:46] LABS: Basophils # 0.1 K/mm3 (0-0.2); Basophils % 0.4 % (0.1-2.0); Eosinophils # 0.5 K/mm3 (0.0-0.4); Eosinophils % 3.2 % (0.1-12.0); Hematocrit 30.9 % (37.0-47.0); Hemoglobin 10.7 g/dL (12.2-16.2); Lymphocytes # 3.2 K/mm3 (0.7-4.5); Lymphocytes % 20.1 % (10-50); Mean Corpuscular HGB Conc 34.6 g/dL (31.8-35.4); Mean Corpuscular Hemoglobin 31.7 pg (27.0-31.2); Mean Corpuscular Volume 91.6 fl (81-99); Mean Platelet Volume 7.7 fl (7.4-10.4); Monocytes # 0.6 K/mm3 (0.1-1.0); Monocytes % 3.8 % (1.7-9.3); Neutrophils # 11.6 K/mm3 (1.8-7.8); Neutrophils % 72.5 % (37.0-80.0); Platelet Count 445 K/mm3 (142-424); Red Blood Count 3.38 M/mm3 (4.20-5.40); Red Cell Distribution Width 13.7 % (11.5-17.5)
[2022-07-28 22:53] LABS: MANUAL DIFFERENTIAL MANUAL DIFFERENTIAL (MANUAL DIFF)
[2022-07-28 22:57] LABS: Alanine Aminotransferase 16 U/L (12-78); Anion Gap 14.6 mEq/L (5-15); Aspartate Amino Transferase 19 U/L (14-36); Blood Urea Nitrogen 6 mg/dl (7-17); Calcium 8.5 mg/dl (8.4-10.2); Carbon Dioxide 22 mmol/L (22.0-30.0); Chloride 102 mmol/L (98-107); Creatinine Clearance Estimated 154 mL/min (50-200); Estimated Glomerular Filt Rate 140 ml/min (>60); GFR (African American) 170 ML/MIN (>60); Glucose 94 mg/dl (74-100); Potassium 3.6 mmoL/L (3.5-5.1); Sodium 135 mmol/L (136-145); Uric Acid 4.1 mg/dl (2.5-6.2)
[2022-07-28 23:05] LABS: Fibrinogen 496 mg/dL (229.9-363.5); INR 0.86 (0.9-1.1); Prothrombin Time 9.4 seconds (10.1-12.5)
[2022-07-28 23:58] LABS: Eosinophils % 1 % (0-3); Lymphocytes % 14 % (10-50); Monocytes % 7 % (2-9); Neutrophils % 78 % (42-76); Platelet Estimate Normal; RBC Morphology Normal; Total Cells Counted 100
[2022-07-29 12:30] LABS: Creatinine,Urine Random 36 mg/dL (Not Estab.)
[2022-07-29 12:47] LABS: Microalbumin/Creatinine Ratio 839.7
== END 2022-07-28 22:46 | disposition home or self-care (01) ==
LOC: OBOUT 21:31 → OB 21:33
PROVIDERS: PCP Physician Assistant; Visit Provider Obstetrics & Gynecology
DX: O47.02 False labor before 37 completed weeks of gestation, second trimester (principal); Z3A.26 26 weeks gestation of pregnancy
CPT/HCPCS: 36415; 80048; 80305; 81001; 82043; 82570; 84450; 84460; 84550; 85007; 85025; 85378; 85384; 85610; 85730; G0463

== ENCOUNTER → 2022-08-11 09:17 | Outpatient (CLI) | payer MEDICAID, SELFPAY ==
[2022-08-11 10:09] LABS: Hematocrit 29.8 % (37.0-47.0); Hemoglobin 10.2 g/dL (12.2-16.2); Mean Corpuscular Hemoglobin 31.8 pg (27.0-31.2); Mean Corpuscular Volume 92.6 fl (81-99); Red Blood Count 3.21 M/mm3 (4.20-5.40); White Blood Count 13.7 K/mm3 (4.8-10.8)
[2022-08-11 10:10] LABS: Basophils # 0.1 K/mm3 (0-0.2); Basophils % 0.5 % (0.1-2.0); Eosinophils # 0.5 K/mm3 (0.0-0.4); Eosinophils % 3.5 % (0.1-12.0); Lymphocytes # 2.8 K/mm3 (0.7-4.5); Lymphocytes % 20.4 % (10-50); Mean Corpuscular HGB Conc 34.3 g/dL (31.8-35.4); Mean Platelet Volume 7.5 fl (7.4-10.4); Monocytes # 0.6 K/mm3 (0.1-1.0); Monocytes % 4.6 % (1.7-9.3); Neutrophils # 9.8 K/mm3 (1.8-7.8); Neutrophils % 71.1 % (37.0-80.0); Platelet Count 424 K/mm3 (142-424); Red Cell Distribution Width 13.6 % (11.5-17.5)
[2022-08-11 10:23] LABS: Glucose,Fasting 90 mg/dl (74-100)
[2022-08-11 10:29] LABS: Barbiturates Screen,Urine Negative ng/ml (<200)
[2022-08-11 10:30] LABS: Benzodiazepines Screen,Urine Negative ng/ml (<200)
[2022-08-11 10:31] LABS: Amphetamine/Metha Screen,Urine Negative ng/ml (<1000); Methadone Screen,Urine Negative ng/ml (<300)
[2022-08-11 10:32] LABS: Cannabinoid Screen,Urine Negative ng/ml (<50); Cocaine Screen,Urine Negative ng/ml (<300)
[2022-08-11 10:33] LABS: Opiate Screen,Urine Negative ng/ml (<300)
[2022-08-11 10:34] LABS: Phencyclidine Screen,Urine Negative ng/ml (<25)
[2022-08-11 11:40] LABS: Glucose 1 Hour 154 mg/dL (74-100)
== END ==
PROVIDERS: PCP Physician Assistant; Visit Provider Nurse Practitioner Obstetrics & Gynecology
DX: Z34.90 Encounter for supervision of normal pregnancy, unspecified, unspecified trimester (principal); Z3A.28 28 weeks gestation of pregnancy
CPT/HCPCS: 36415; 80305; 82951; 85025

== ENCOUNTER 2022-09-21 11:25 | Outpatient (CLI) | payer MEDICAID, SELFPAY ==
[2022-09-21 11:58] VITALS: BMI 23.6
[2022-09-21 12:03] LABS: Microscopic, Urine URINE MICROSCOPIC (MICROSCOPIC)
[2022-09-21 12:17] LABS: Appearance,Urine CLEAR (Clear); Bilirubin,Urine Negative (Negative); Blood, Urine 2+ (Negative); Color,Urine YELLOW (Yellow); Glucose,Urine (UA) Negative (Negative); Ketones,Urine Negative (Negative); Leukocyte Esterase,Urine Negative (Negative); Nitrate,Urine Negative (Negative); Protein,Urine 2+ (Negative); Urobilinogen,Urine 0.2 EU/dl (0.2)
[2022-09-21 12:21] VITALS: BP 118/74; PULSE 88; RESP 18; TEMP 36.7; O2SAT 99; BMI 23.6
[2022-09-21 12:21] LABS: Fetal Membrane Rupture (Rapid) Negative (Negative)
[2022-09-21 13:34] LABS: Bacteria,Urine Trace /lpf
[2022-09-21 13:41] LABS: Fetal Fibronectin (Rapid) Negative (Negative)
[2022-09-21 14:16] LABS: Barbiturates Screen,Urine Negative ng/ml (<200)
[2022-09-21 14:17] LABS: Amphetamine/Metha Screen,Urine Negative ng/ml (<1000); Benzodiazepines Screen,Urine Negative ng/ml (<200)
[2022-09-21 14:18] LABS: Methadone Screen,Urine Negative ng/ml (<300)
[2022-09-21 14:19] LABS: Cannabinoid Screen,Urine Negative ng/ml (<50); Cocaine Screen,Urine Negative ng/ml (<300)
[2022-09-21 14:20] LABS: Opiate Screen,Urine Negative ng/ml (<300)
[2022-09-21 14:21] LABS: Phencyclidine Screen,Urine Negative ng/ml (<25)
== END 2022-09-21 13:38 | disposition home or self-care (01) ==
LOC: OBOUT 11:26 → OB 11:27
PROVIDERS: PCP Physician Assistant; Visit Provider Obstetrics & Gynecology
DX: O26.893 Other specified pregnancy related conditions, third trimester (principal); Z3A.34 34 weeks gestation of pregnancy
CPT/HCPCS: 59025; 80305; 81001; 82731; 84112; G0463

== ENCOUNTER → 2022-09-30 12:56 | Outpatient (CLI) | payer MEDICAID, SELFPAY ==
--- NOTE | 2022-09-30 12:56 | US_ITS ---
PROCEDURE: US OB BIOPHYSICAL PROFILE CLINICAL INDICATION: sga COMPARISON: 06/09/2022 FINDINGS: From her established due date she is 35weeks 4days. The following parameters were obtained: Viable fetus in the cephalic presentation with a posterior placenta grade 2. The previously described placenta previa has completely resolved. Average ultrasound age is 34weeks 5days. Estimated due date by ultrasound is 11/06/2022. Estimated weight is 5lb 6 oz, 2425 grams. 20percentile. heart rate: 149bpm bpm. BPD: 34weeks 6days OFD: 34weeks 6days HC: 34 weeks 1 day AC: 34 weeks 1 day FL: 35 weeks 0 days HC/AC: 1.02 Cephalic index: 0.8 FL/BPD: 0.78 FL/AC: 0.23 Amniotic fluid index: 11.19cm Qualitative AFV: 2 breathing movements: 2 Gross body movements: 2 Tone: 2 Biophysical profile score: 8 Doppler evaluation of the umbilical artery: SD ratio: 3.0 Resistive index: 0.67 No obvious anomalies evident.Kidneys, three-vessel cord appears normal. Profile, four-chamber view, LVOT, RVOT appear normal IMPRESSION: 1. Viable fetus in the cephalic presentation with a posterior placenta grade 2. 2. The fluid is within normal limits with an amniotic fluid index of 11.2 cm. 3. The previously described posterior placenta previa has completely resolved. 4. Biophysical profile /8 with good breathing movement. Normal SD ratio. 5. There has been good interval growth with the fetus currently 20 percentile. Dictated by: Ronni Neil MD 10/01/2022 09:06 Ronni Neil MD in OV 10/01/2022 09:06
[2022-09-30 16:51] LABS: Basophils # 0.1 K/mm3 (0-0.2); Basophils % 0.5 % (0.1-2.0); Eosinophils # 0.5 K/mm3 (0.0-0.4); Hematocrit 30.5 % (37.0-47.0); Hemoglobin 10.3 g/dL (12.2-16.2); Lymphocytes # 2.6 K/mm3 (0.7-4.5); Lymphocytes % 17.2 % (10-50); Mean Corpuscular HGB Conc 33.8 g/dL (31.8-35.4); Mean Corpuscular Hemoglobin 31.7 pg (27.0-31.2); Mean Corpuscular Volume 93.9 fl (81-99); Mean Platelet Volume 6.9 fl (7.4-10.4); Monocytes # 0.6 K/mm3 (0.1-1.0); Monocytes % 3.7 % (1.7-9.3); Neutrophils # 11.3 K/mm3 (1.8-7.8); Neutrophils % 75.7 % (37.0-80.0); Platelet Count 338 K/mm3 (142-424); Red Blood Count 3.25 M/mm3 (4.20-5.40); White Blood Count 14.9 K/mm3 (4.8-10.8)
[2022-09-30 17:15] LABS: Alanine Aminotransferase 13 U/L (12-78); Albumin Level 3.1 g/dl (3.5-5.0); Alkaline Phosphatase 250 U/L (38-126); Anion Gap 7.5 mEq/L (5-15); Aspartate Amino Transferase 19 U/L (14-36); Bilirubin,Total 0.4 mg/dl (0.2-1.3); Blood Urea Nitrogen 7 mg/dl (7-17); Calcium 8.7 mg/dl (8.4-10.2); Carbon Dioxide 24 mmol/L (22.0-30.0); Chloride 107 mmol/L (98-107); Estimated Glomerular Filt Rate 95 ml/min (>60); GFR (African American) 115 ML/MIN (>60); Glucose 84 mg/dl (74-100); Potassium 4.5 mmoL/L (3.5-5.1); Sodium 134 mmol/L (136-145); Total Protein,Serum 6.1 g/dl (6.3-8.2)
== END ==
PROVIDERS: PCP Physician Assistant; Visit Provider Nurse Practitioner Obstetrics & Gynecology
DX: O36.5930 Maternal care for other known or suspected poor fetal growth, third trimester, not applicable or unspecified (principal); Z3A.35 35 weeks gestation of pregnancy
CPT/HCPCS: 36415; 76816; 76819; 76820; 80053; 85025; 86403

== ENCOUNTER → 2022-10-04 09:07 | Outpatient (CLI) | payer MEDICAID, SELFPAY ==
[2022-10-05 01:50] LABS: Collection Time,Urine 24 hours; Total Volume,Urine 2100 mL (600-1600)
[2022-10-05 02:15] LABS: Total Protein 24 Hour,Urine 3108 mg/24 hr (40-90)
[2022-10-05 02:16] LABS: Creatinine 24 Hour,Urine 693 mg/24hr (630-2500)
[2022-10-05 02:17] LABS: Creatinine,Urine Random 33 mg/dL (Not Estab.)
== END ==
PROVIDERS: PCP Physician Assistant; Visit Provider Nurse Practitioner Obstetrics & Gynecology
DX: Z34.93 Encounter for supervision of normal pregnancy, unspecified, third trimester (principal); Z3A.37 37 weeks gestation of pregnancy
CPT/HCPCS: 36415; 82575; 84155

== ENCOUNTER 2022-10-05 19:41 | Outpatient (CLI) | payer MEDICAID, SELFPAY ==
[2022-10-05 20:26] VITALS: BMI 23.8
[2022-10-05 20:32] VITALS: BP 128/93; PULSE 109; RESP 18; TEMP 36.7; O2SAT 98; BMI 23.8
[2022-10-05 20:32] LABS: Microscopic, Urine URINE MICROSCOPIC (MICROSCOPIC)
[2022-10-05 20:43] LABS: Appearance,Urine CLEAR (Clear); Bilirubin,Urine Negative (Negative); Blood, Urine 2+ (Negative); Color,Urine YELLOW (Yellow); Glucose,Urine (UA) Negative (Negative); Ketones,Urine Negative (Negative); Leukocyte Esterase,Urine TRACE (Negative); Nitrate,Urine Negative (Negative); Protein,Urine 2+ (Negative); Urobilinogen,Urine 0.2 EU/dl (0.2)
[2022-10-05 20:56] LABS: Barbiturates Screen,Urine Negative ng/ml (<200); Cannabinoid Screen,Urine Negative ng/ml (<50)
[2022-10-05 20:57] LABS: Benzodiazepines Screen,Urine Negative ng/ml (<200)
[2022-10-05 20:58] LABS: Cocaine Screen,Urine Negative ng/ml (<300)
[2022-10-05 20:59] LABS: Methadone Screen,Urine Negative ng/ml (<300)
[2022-10-05 21:00] LABS: Bacteria,Urine 1+ /lpf; Opiate Screen,Urine Negative ng/ml (<300); WBC,Urine Occasional #/hpf (0-3)
[2022-10-05 21:01] LABS: Phencyclidine Screen,Urine Negative ng/ml (<25)
[2022-10-05 22:06] LABS: Amphetamine/Metha Screen,Urine Negative ng/ml (<1000)
== END 2022-10-05 22:07 | disposition home or self-care (01) ==
LOC: OBOUT 19:42 → OB 19:43
PROVIDERS: PCP Physician Assistant; Visit Provider Nurse Practitioner Obstetrics & Gynecology
DX: O47.03 False labor before 37 completed weeks of gestation, third trimester (principal); Z3A.36 36 weeks gestation of pregnancy; M54.50 Low back pain, unspecified
CPT/HCPCS: 59025; 80305; 81001; G0463

== ENCOUNTER 2022-10-19 04:46 | Inpatient (IN) | payer MEDICAID, SELFPAY ==
[2022-10-19] VITALS (23 sets, daily range): BP systolic 130–203; BP diastolic 64–110; PULSE 86–118; RESP 16–20; TEMP 36.6–37.1; O2SAT 97–100; BMI 25.8
[2022-10-19 05:30] LABS: Microscopic, Urine URINE MICROSCOPIC (MICROSCOPIC)
[2022-10-19 05:33] LABS: Basophils # 0.1 K/mm3 (0-0.2); Basophils % 0.7 % (0.1-2.0); Eosinophils # 0.5 K/mm3 (0.0-0.4); Eosinophils % 2.8 % (0.1-12.0); Hematocrit 31.8 % (37.0-47.0); Hemoglobin 10.5 g/dL (12.2-16.2); Lymphocytes # 3.5 K/mm3 (0.7-4.5); Lymphocytes % 21.9 % (10-50); Mean Corpuscular HGB Conc 33.1 g/dL (31.8-35.4); Mean Corpuscular Hemoglobin 31.1 pg (27.0-31.2); Mean Corpuscular Volume 93.8 fl (81-99); Mean Platelet Volume 7.7 fl (7.4-10.4); Monocytes # 0.7 K/mm3 (0.1-1.0); Monocytes % 4.1 % (1.7-9.3); Neutrophils # 11.4 K/mm3 (1.8-7.8); Neutrophils % 70.5 % (37.0-80.0); Platelet Count 359 K/mm3 (142-424); Red Blood Count 3.39 M/mm3 (4.20-5.40); Red Cell Distribution Width 14.7 % (11.5-17.5); White Blood Count 16.2 K/mm3 (4.8-10.8)
[2022-10-19 05:43] LABS: Alanine Aminotransferase 19 U/L (12-78); Anion Gap 11.8 mEq/L (5-15); Aspartate Amino Transferase 21 U/L (14-36); Blood Urea Nitrogen 9 mg/dl (7-17); Calcium 8.5 mg/dl (8.4-10.2); Carbon Dioxide 19 mmol/L (22.0-30.0); Chloride 107 mmol/L (98-107); Creatinine Clearance Estimated 137 mL/min (50-200); Estimated Glomerular Filt Rate 114 ml/min (>60); GFR (African American) 138 ML/MIN (>60); Glucose 91 mg/dl (74-100); Potassium 3.8 mmoL/L (3.5-5.1); Sodium 134 mmol/L (136-145); Uric Acid 5.6 mg/dl (2.5-6.2)
[2022-10-19 05:46] LABS: MANUAL DIFFERENTIAL MANUAL DIFFERENTIAL (MANUAL DIFF)
[2022-10-19 05:47] LABS: D-Dimer 3.76 ug/mL (0.0-0.5)
[2022-10-19 06:05] LABS: Appearance,Urine CLEAR (Clear); Bilirubin,Urine Negative (Negative); Blood, Urine 2+ (Negative); Color,Urine YELLOW (Yellow); Glucose,Urine (UA) Negative (Negative); Ketones,Urine Negative (Negative); Leukocyte Esterase,Urine Negative (Negative); Nitrate,Urine Negative (Negative); PH,Urine 6.5 (5.0-8.5); Protein,Urine 2+ (Negative); Specific Gravity, Urine 1.015 (1.005-1.030); Urobilinogen,Urine 0.2 EU/dl (0.2)
[2022-10-19 06:15] LABS: Eosinophils % 1 % (0-3); Lymphocytes % 27 % (10-50); Neutrophils % 71 % (42-76); Platelet Estimate Normal; RBC Morphology Normal; Total Cells Counted 100
[2022-10-19 06:18] LABS: WBC,Urine Occasional #/hpf (0-3)
[2022-10-19 06:19] LABS: Bacteria,Urine Trace /lpf
[2022-10-19 06:22] LABS: Amphetamine/Metha Screen,Urine Negative ng/ml (<1000); Barbiturates Screen,Urine Negative ng/ml (<200); Benzodiazepines Screen,Urine Negative ng/ml (<200); Cannabinoid Screen,Urine Negative ng/ml (<50); Cocaine Screen,Urine Negative ng/ml (<300); Methadone Screen,Urine Negative ng/ml (<300); Opiate Screen,Urine Negative ng/ml (<300); Phencyclidine Screen,Urine Negative ng/ml (<25)
[2022-10-19 06:34] LABS: Activated Partial Thrombo Time 26.4 seconds (22.8-30.6); Fibrinogen 579 mg/dL (229.9-363.5); INR 0.84 (0.9-1.1); Prothrombin Time 9.2 seconds (10.1-12.5)
--- NOTE | 2022-10-19 08:48 | EXP.LABOR.NO ---
Labor Note Subjective: Date: 10/19/22 Time: 08:30 regular contraction Objective: NST:: Reactive Contractions:: every 2-3 minutes Cervical Dilation:: 2-3 Effacement:: 50% Station: -3 Membranes: artificially ruptured Fetus: Monitoring?: Yes monitoring type:: External Assessment: Labor progressing?: Yes Cephalopelvic disproportion?: No Plan: Anesthesia for epidural?: Yes Continue to labor down?: Yes Plan for ?: No Continue to monitor?: Yes Start pushing?: No Comment:: She is doing very well. We will plan a vaginal delivery.
--- NOTE | 2022-10-19 09:01 | EXP.HP ---
History of Present Illness *Admission Date: 10/19/22 *Reason for visit:: Increased blood pressure in . *History of present illness: She is a 36-year-old 5 para 4 at 38 weeks gestational age. She has had gestational hypertension and has been on nifedipine. As result of that we elected her to deliver her at 38 weeks. [facility] Disclaimer: The information contained in this section may have been updated after the patient was seen, as this information can be updated by other users. Medical History Anxiety Bilateral otitis media Migraine headache with aura Social History Smoking Status: Current every day smoker tobacco type: cigarettes packs per day: 1 alcohol intake: never substance use type: denies use current occupational status: employed Travel in the last 8 weeks: None housing: house Review of Systems Review of Systems Review of systems:: pertinent systems reviewed and negative unless documented below Meds Home Medications and Allergies Home Medications Medication Instructions Recorded Confirmed Type aspirin 81 mg tablet,delayed 81 mg PO DAILY 01/06/21 10/14/22 History release (Adult Aspirin Regimen) prenat.vits,brian,eim-sbqf-dbgvh 1 tab PO DAILY 05/05/22 10/14/22 History ondansetron 4 mg disintegrating 4 mg PO Q8H PRN nausea and 06/25/22 10/14/22 Rx tablet vomiting #20 tabs hydroxyzine HCl 25 mg tablet 25 mg PO TIDP PRN Anxiety 10/19/22 History nifedipine 30 mg tablet,extended 30 mg PO DAILY blood pressure 10/19/22 10/19/22 History release 24 hr New Prescriptions to Start Prescriptions: Allergies Allergy/AdvReac Type Severity Reaction Status Date / Time No Known Allergies Allergy Verified 10/14/22 13:15 Exam Data for Last 24 hours Vital signs and Labs for Last 24 Hours: Temp Pulse Resp BP Pulse Ox O2 Del Method 97.8 F 99 H 20 132/67 98 Room Air 10/19/22 07:40 10/19/22 07:40 10/19/22 07:40 10/19/22 07:40 10/19/22 07:40 10/19/22 07:40 Laboratory Results - last 24 hr 10/19/22 04:50: Urine Color Yellow, Urine Appearance Clear, Urine pH 6.5, Ur Specific [place] 1.015, Urine Protein 2+, Urine Glucose (UA) Negative, Urine Ketones Negative, Urine Blood 2+, Urine Nitrate Negative, Urine Bilirubin Negative, Urine Urobilinogen 0.2, Ur Leukocyte Esterase Negative, Urine RBC 3-5, Urine WBC Occasional, Ur Squamous Epith Cells 5-10, Urine Bacteria Trace, Urine Opiates Screen Negative, Urine Methadone Screen Negative, Ur Barbituates Screen Negative, Ur Phencyclidine Scrn Negative, Ur Amphetamines Screen Negative, U Benzodiazepines Scrn Negative, Urine Cocaine Screen Negative, U Marijuana (THC) Screen Negative 10/19/22 05:13: WBC 16.2 H, RBC 3.39 L, Hgb 10.5 L, Hct 31.8 L, MCV 93.8, MCH 31.1, MCHC 33.1, RDW 14.7, Plt Count 359, MPV 7.7, Neut % (Auto) 70.5, Lymph % (Auto) 21.9, [place] % (Auto) 4.1, Eos % (Auto) 2.8, Baso % (Auto) 0.7, Neut # (Auto) 11.4 H, Lymph # (Auto) 3.5, [place] # (Auto) 0.7, Eos # (Auto) 0.5 H, Baso # (Auto) 0.1, Total Counted 100, Neutrophils % (Manual) 71, Lymphocytes % (Manual) 27, Eosinophils % (Manual) 1, Basophils % (Manual) 1.0, Platelet Estimate Normal, RBC Morphology Normal, PT 9.2 L, INR 0.84 L, APTT 26.4, Fibrinogen 579 H, D-Dimer 3.76 H, Sodium 134 L, Potassium 3.8, Chloride 107, Carbon Dioxide 19 L, Anion Gap 11.8, BUN 9, Creatinine 0.60, Estimated Creat Clear 137, Estimated GFR 114, Est GFR ( Amer) 138, Glucose 91, Uric Acid 5.6, Calcium 8.5, AST 21, ALT 19, Blood Type O Positive, Antibody Screen Negative I & O for Last 24 hours: Intake & Output 10/16/22 10/17/22 10/18/22 10/19/22 11:59 11:59 11:59 11:59 Weight 146 lb Constitutional Constitutional: no acute distress *Routine HEENT Exam Head: Present normocephalic Eye: Present EOMI and PERRL ENT: Present mucous membranes moist *Routine Neck Exam Neck: Present suppl
--- NOTE | 2022-10-19 10:03 | EXP.ANES.CKL ---
[facility] Disclaimer: The information contained in this section may have been updated after the patient was seen, as this information can be updated by other users. Medical History Anxiety Bilateral otitis media Migraine headache with aura Social History Smoking Status: Current every day smoker tobacco type: cigarettes packs per day: 1 alcohol intake: never substance use type: denies use current occupational status: employed Travel in the last 8 weeks: None housing: house [facility] Anesthesia Checklist Patient Identification Patient Identification: Arm Band Structural Data Admitted From: Inpatient Planned Operative Procedure/s: Labor Epidural Consent for Planned Operative Procedure(s) Verified: Yes Verified Documents: Surgical Consent and History and Physical NPO Status Verified Time NPO: 00:00 Additional verifications Anesthesia Reactions: No Airway Assessment Mallampati Score:: Class II C-Spine Mobility Assessed: Yes TMJ Mobility Assessed: Yes Neurological Assessment Level of Consciousness: Awake and Alert Anesthesia Plan Anesthesia Risk discussed: Yes Anesthesia Plan: Verified ASA Class: II Anesthesia Type: Epidural
--- NOTE | 2022-10-19 11:28 | EXP.LABOR.NO ---
Labor Note Subjective: Date: 10/19/22 Time: 11:15 regular contraction Objective: NST:: Reactive Contractions:: every 2-3 minutes Cervical Dilation:: 6 Effacement:: 90% Station: -2 Membranes: artificially ruptured Fetus: Monitoring?: Yes monitoring type:: External Assessment: Labor progressing?: Yes Cephalopelvic disproportion?: No Plan: Anesthesia for epidural?: Yes Continue to labor down?: Yes Plan for ?: No Continue to monitor?: Yes Start pushing?: No Comment:: She continues to do well. The nonstress test is reactive. Baby's head is still slightly high but we will anticipate a vaginal delivery.
--- NOTE | 2022-10-19 11:29 | HMH.PHAINT1 ---
Pharmacy Intervention Comments: MEDICATION RECONCILIATION COMPLETED ON PATIENT USING EXTERNAL FILL HISTORY FROM PHARMACY. -MARIBELL PRIEST, SHANAED
--- NOTE | 2022-10-19 13:19 | EXP.LABOR.NO ---
Labor Note Subjective: Date: 10/19/22 Time: 13:19 regular contraction Objective: NST:: Reactive Contractions:: every 2-3 minutes Cervical Dilation:: 9 Effacement:: 100% Station: 0 Membranes: artificially ruptured Fetus: Monitoring?: Yes monitoring type:: External Assessment: Labor progressing?: Yes Cephalopelvic disproportion?: No Plan: Anesthesia for epidural?: Yes Continue to labor down?: Yes Plan for ?: No Continue to monitor?: Yes Start pushing?: Yes Comment:: She has an anterior lip and her bladder was full. Will empty her bladder and see how she does. I suspect we may be able to just push around the bit of cervix since left.
--- NOTE | 2022-10-19 13:36 | EXP.DN ---
Delivery Note Delivery Date:: 10/19/22 Delivery Time:: 13:29 Anesthesia Type: Epidural Was labor medically induced?: Yes Induction method: per pitocin protocol Gestational age (weeks): 38 delivered prior to 39 weeks?: Yes Justification for early elective delivery:: Gestational Hypertension Gender: Male at 1 minute: 8 at 5 minutes: 9 Delivery Procedure:: She is a 36-year-old 5 para 4 who has a history of -induced hypertension and her other pregnancies. She has been followed for increased blood pressure in this and as result of that we elected to deliver her at 38 weeks. She was started on IV oxytocin had her membranes ruptured. Under labor epidural progressed to full dilation and delivered spontaneously a liveborn male child at 1:29 PM in the afternoon of October 19, 2022. On deliver the head the anterior shoulder then easily delivered followed by the rest the infant's body atraumatically. The baby was vigorous. We allowed the cord to continue to pulsate for approximately 1 minute. The cord was then doubly clamped and cut and the infant was placed on the mother's abdomen for further care. The nurses assigned Apgars of 8 at 1 minute and 9 at 5 minutes. We then at obtained cord blood. She received IV oxytocin using gentle traction on the cord and countertraction on the fundus I was able to easily deliver the placenta intact. Had a normal three-vessel cord. There were no perineal or vaginal lacerations. Estimated blood loss was approximately 200 cc. Placental Delivery Description: Spontaneous
[2022-10-19 15:23] LABS: Hematocrit 35.1 % (37.0-47.0)
[2022-10-19 15:40] LABS: Alanine Aminotransferase 18 U/L (12-78); Albumin Level 2.8 g/dl (3.5-5.0); Albumin/Globulin Ratio 0.9 (1.1-1.8); Alkaline Phosphatase 259 U/L (38-126); Anion Gap 12.2 mEq/L (5-15); Aspartate Amino Transferase 44 U/L (14-36); Bilirubin,Total 0.7 mg/dl (0.2-1.3); Blood Urea Nitrogen 7 mg/dl (7-17); Calcium 8.3 mg/dl (8.4-10.2); Carbon Dioxide 15 mmol/L (22.0-30.0); Chloride 112 mmol/L (98-107); Creatinine Clearance Estimated 164 mL/min (50-200); Estimated Glomerular Filt Rate 140 ml/min (>60); GFR (African American) 170 ML/MIN (>60); Glucose 96 mg/dl (74-100); Potassium 4.2 mmoL/L (3.5-5.1); Sodium 135 mmol/L (136-145); Total Protein,Serum 5.8 g/dl (6.3-8.2)
--- NOTE | 2022-10-19 16:20 | EXP.ACUTE.PN ---
Subjective *Date: 10/19/22 *Time: 16:20 Interval history: Shortly after she delivered she began having some increased bleeding. She met the protocol for hemorrhage. As result that was followed the protocol and when I examined her I was able to remove approximately 250 cc of blood clots from her uterus. The uterus contracted down well. We then subsequently gave her Hemabate x 2 as well as 200 mcg of Cytotec. She also received tranexamic acid. She was receiving IV oxytocin. She continued to ooze somewhat so I elected to place a BAKRI balloon catheter. The catheter would not go up into the uterus and stay there. I tried it with a second catheter and it still came out of the uterus. Her cervix was very patulous and as result of that the balloon would not stay in the uterine cavity. I did examine her cervix all the way around the cervix with sponge forceps and there were no lacerations that were bleeding on the cervix. After this we measured the amount of blood loss by weighing the checks and she was found to have 1325 cc of blood loss. She subsequently continued to ooze and met the 1500 cc massive blood loss protocol so she received 2 units of blood as well as fresh frozen plasma. We have 2 more units on hold. Throughout this her blood pressure and heart rate remained stable. She looked well throughout. Her uterus is well-contracted and 2 fingers below the umbilicus. At this point in time she is stable and her oozing is minimal. I would just call at normal lochia. We will continue to watch her closely. We will continue with IV oxytocin for now and we will also continue with Cytotec every 6 hours for 24 hours. We will get repeat blood work as well as the blood work associated with the blood loss protocol. Medical Exam Vital signs and Labs for Last 24 Hours: Vital Signs Temp Pulse Resp BP Pulse Ox O2 Del Method 10/19/22 07:40 97.8 F 99 H 20 132/67 98 Room Air 10/19/22 05:20 98.2 F 118 H 17 144/95 H 97 Room Air Intake and Output 10/19/22 10/19/22 10/19/22 03:59 11:59 19:59 Other: Weight 146 lb Laboratory Results - last 24 hr 10/19/22 04:50: Urine Color Yellow, Urine Appearance Clear, Urine pH 6.5, Ur Specific [place] 1.015, Urine Protein 2+, Urine Glucose (UA) Negative, Urine Ketones Negative, Urine Blood 2+, Urine Nitrate Negative, Urine Bilirubin Negative, Urine Urobilinogen 0.2, Ur Leukocyte Esterase Negative, Urine RBC 3-5, Urine WBC Occasional, Ur Squamous Epith Cells 5-10, Urine Bacteria Trace, Urine Opiates Screen Negative, Urine Methadone Screen Negative, Ur Barbituates Screen Negative, Ur Phencyclidine Scrn Negative, Ur Amphetamines Screen Negative, U Benzodiazepines Scrn Negative, Urine Cocaine Screen Negative, U Marijuana (THC) Screen Negative 10/19/22 05:13: WBC 16.2 H, RBC 3.39 L, Hgb 10.5 L, Hct 31.8 L, MCV 93.8, MCH 31.1, MCHC 33.1, RDW 14.7, Plt Count 359, MPV 7.7, Neut % (Auto) 70.5, Lymph % (Auto) 21.9, [place] % (Auto) 4.1, Eos % (Auto) 2.8, Baso % (Auto) 0.7, Neut # (Auto) 11.4 H, Lymph # (Auto) 3.5, [place] # (Auto) 0.7, Eos # (Auto) 0.5 H, Baso # (Auto) 0.1, Total Counted 100, Neutrophils % (Manual) 71, Lymphocytes % (Manual) 27, Eosinophils % (Manual) 1, Basophils % (Manual) 1.0, Platelet Estimate Normal, RBC Morphology Normal, PT 9.2 L, INR 0.84 L, APTT 26.4, Fibrinogen 579 H, D-Dimer 3.76 H, Sodium 134 L, Potassium 3.8, Chloride 107, Carbon Dioxide 19 L, Anion Gap 11.8, BUN 9, Creatinine 0.60, Estimated Creat Clear 137, Estimated GFR 114, Est GFR ( Amer) 138, Glucose 91, Uric Acid 5.6, Calcium 8.5, AST 21, ALT 19, Blood Type O Positive, Antibody Screen Negative, Crossmatch ([facility]) See Detail 10/19/22 15:15: Hgb 11.0 L, Hct 35.1 L, Sodium 135 L, Potassium 4.2, Chloride 112 H, Carbon Dioxide 15 L, Anion Gap 12.2, BUN 7, Creatinine 0.50 L, Estimated Creat Clear 164, Estimated GFR 140, Est GFR ( Amer) 170 D, Glucose 96, Calcium 8.3 L, Total Bilirubin 0.7, AST 44 H D, ALT 18, Alkaline Phosphatase 259 H
--- NOTE | 2022-10-19 16:40 | PC.NURSE ---
UNIT [id number] STARTED AT 1520 FINISHED AT 1548 180/90 117 100% 1525 187/104 117 93% [id number] STARTED AT 1533 AND STOPPED AT 1548 1534: 172/129 133 99% 15:40 194/93 112 100%
[2022-10-19 16:42] LABS: Activated Partial Thrombo Time 22.5 seconds (22.8-30.6); Fibrinogen 497 mg/dL (229.9-363.5); INR 0.85 (0.9-1.1); Prothrombin Time 9.3 seconds (10.1-12.5)
[2022-10-19 17:29] LABS: Hematocrit 34.9 % (37.0-47.0); Hemoglobin 11.6 g/dL (12.2-16.2)
[2022-10-20 06:55] LABS: Hematocrit 24.4 % (37.0-47.0)
[2022-10-20 07:38] LABS: Hemoglobin 8.3 g/dL (12.2-16.2)
[2022-10-20 07:42] VITALS: BP 127/71; PULSE 89; RESP 17; TEMP 36.4; O2SAT 100
--- NOTE | 2022-10-20 12:06 | EXP.ACUTE.PN ---
Subjective *Date: 10/20/22 *Time: 07:15 Interval history: She is doing very well this morning. She denies any shortness of breath or chest pain. She denies any dizziness. Her hemoglobin is 8.3. She started out at 10.5. She did receive 2 units of blood as well. She is bottlefeeding. Her lochia is now normal. Medical Exam Vital signs and Labs for Last 24 Hours: Vital Signs Temp Pulse Pulse Resp BP BP Pulse Ox 10/20/22 07:42 97.6 F 89 17 127/71 100 10/19/22 21:57 98.6 F 97 H 16 139/71 100 10/19/22 20:56 98.1 F 97 H 17 141/76 H 100 10/19/22 20:54 98.2 F 95 H 18 141/82 H 100 10/19/22 20:49 97.9 F 96 H 17 141/78 H 100 10/19/22 20:44 98.5 F 97 H 17 136/69 100 10/19/22 20:38 98.8 F 100 H 16 135/69 100 10/19/22 20:35 97.8 F 105 H 17 138/73 100 10/19/22 19:12 97.8 F 110 H 17 134/64 100 10/19/22 19:08 98.4 F 110 H 17 134/67 100 10/19/22 19:03 98.2 F 112 H 17 141/73 H 100 10/19/22 18:58 98.6 F 104 H 18 140/64 100 10/19/22 18:53 97.8 F 101 H 17 139/70 100 10/19/22 18:50 97.8 F 108 H 17 140/74 100 10/19/22 17:08 130/86 10/19/22 17:05 134/95 H 10/19/22 16:16 203/99 H O2 Del Method 10/20/22 07:42 Room Air 10/19/22 21:57 10/19/22 20:56 10/19/22 20:54 10/19/22 20:49 10/19/22 20:44 10/19/22 20:38 10/19/22 20:35 10/19/22 19:12 10/19/22 19:08 10/19/22 19:03 10/19/22 18:58 10/19/22 18:53 10/19/22 18:50 10/19/22 17:08 10/19/22 17:05 10/19/22 16:16 Intake and Output 10/20/22 10/20/22 10/20/22 03:59 11:59 19:59 Intake Total 338 / 663 Balance 338 / 263 Intake: Intake (Blood Product) Amt 338 / 663 Fresh Frozen Plasma Unit 338 / 338 [id number] Laboratory Results - last 24 hr 10/19/22 04:50: Urine Opiates Screen Negative, Urine Methadone Screen Negative, Ur Barbituates Screen Negative, Ur Phencyclidine Scrn Negative, Ur Amphetamines Screen Negative, U Benzodiazepines Scrn Negative, Urine Cocaine Screen Negative, U Marijuana (THC) Screen Negative 10/19/22 05:13: Blood Type O Positive, Antibody Screen Negative, Crossmatch ([facility]) See Detail 10/19/22 15:15: Hgb 11.0 L, Hct 35.1 L, PT 9.3 L, INR 0.85 L, APTT 22.5 L, Fibrinogen 497 H, Sodium 135 L, Potassium 4.2, Chloride 112 H, Carbon Dioxide 15 L, Anion Gap 12.2, BUN 7, Creatinine 0.50 L, Estimated Creat Clear 164, Estimated GFR 140, Est GFR ( Amer) 170 D, Glucose 96, Calcium 8.3 L, Total Bilirubin 0.7, AST 44 H D, ALT 18, Alkaline Phosphatase 259 H, Total Protein 5.8 L, Albumin 2.8 L, Globulin 3.0, Albumin/Globulin Ratio 0.9 L 10/19/22 17:05: Hgb 11.6 L, Hct 34.9 L 10/20/22 06:22: Hgb 8.3 L D, Hct 24.4 L I & O for Labs for Last 24 Hours: Intake & Output 10/18/22 10/19/22 10/20/22 10/21/22 11:59 11:59 11:59 11:59 Intake Total 663 / 663 Output Total 400 / 400 Balance 263 / 263 Weight 146 lb Head: Present atraumatic ENT: Present normal exam Neck: Present normal inspection Respiratory: Present normal respiratory effort; Absent accessory muscle use Assessment and Plan *Assessment and plan (1) hemorrhage: Status: Acute Qualifiers: hemorrhage type: third-stage Qualified Code(s): O72.0 - Third-stage hemorrhage Category: Medical Code(s): O72.1 - Other immediate hemorrhage (2) induced hypertension, antepartum: Status: Acute Category: Medical Code(s): O13.9 - Gestational [-induced] hypertension without significant proteinuria, unspecified trimester Plan She is doing well today. She is stable. She is bottlefeeding. Her lochia is normal. We will repeat her H&H tomorrow morning. We will make sure she takes her vitamins and iron when she goes home. We will plan to discharge her tomorrow.
[2022-10-20 15:35] VITALS: BP 192/89
[2022-10-20 15:50] VITALS: BP 139/78; PULSE 85; RESP 20; TEMP 36.8; O2SAT 100
[2022-10-20 19:52] VITALS: BP 135/83; PULSE 88; RESP 17; TEMP 36.3; O2SAT 98
--- NOTE | 2022-10-21 07:07 | EXP.DC.SUM ---
General Admission date:: 10/19/22 Discharge date: 10/21/22 HPI HPI HPI: She is a 36-year-old 5 para 4 at 38 weeks gestational age. She has had gestational hypertension and has been on nifedipine. As result of that we elected her to deliver her at 38 weeks. Hospital Course Hospital Course Hospital Course: She was started on IV oxytocin had her membranes ruptured. She progressed under labor epidural to full dilation and delivered spontaneously a liveborn male child at 1:29 PM in the afternoon of October 19, 2022. The baby weighed 6 pounds 9 ounces and was 19-1/2 inches long. He had Apgars of 8 at 1 minute and 9 at 5 minutes. After delivery she began having excess bleeding and she received Hemabate, Cytotec and oxytocin. We attempted to place a BAKRI balloon twice and it did not stay in place. Subsequently her bleeding settled after the medication. She did however lose over 1500 cc of blood and the massive blood loss protocol was started. She received 2 units of blood as well as 1 unit of fresh frozen plasma. Subsequently she has done very well and has remained afebrile throughout her hospitalization. Her lochia is normal. Post hemoglobin yesterday was 8.3. She is completely asymptomatic with respect to her low hemoglobin. Predelivery it was 10.5. We will plan to send her home today to follow-up with me in 2 weeks time. She was given a prescription for iron tablets as well as her Vistaril that she takes for anxiety. I told her if she has any depression she should let me know right away and we will get her started on an antidepressant that has some antianxiety properties. She was given the usual instructions with respect to limiting her activity, driving and sexual activity. Her condition on discharge is stable and improved. She has O+ blood, she is rubella immune and was group B streptococcus negative. Her associate professor of economics is Dr. Martinez. We will plan for a tubal ligation in about 6 weeks. Exam Data for Last 24 hours Vital signs and Labs for Last 24 Hours: Temp Pulse Resp BP Pulse Ox O2 Del Method 97.4 F L 88 17 135/83 98 Room Air 10/20/22 19:52 10/20/22 19:52 10/20/22 19:52 10/20/22 19:52 10/20/22 19:52 10/20/22 19:52 Laboratory Results - last 24 hr 10/19/22 05:13: Crossmatch ([facility]) See Detail 10/20/22 06:22: Hgb 8.3 L D I & O for Last 24 hours: Intake & Output 10/18/22 10/19/22 10/20/22 10/21/22 11:59 11:59 11:59 11:59 Intake Total 663 / 663 Output Total 400 / 400 Balance 263 / 263 Weight 146 lb Constitutional Constitutional: no acute distress *Routine HEENT Exam Head: Present normocephalic *Routine Neck Exam Neck: Present full ROM *Routine Respiratory Exam Respiratory: Present normal respiratory effort; Absent accessory muscle use Results Data Completed and Pending Labs on day of discharge: Labs from last 24 hours 10/20/22 10/19/22 06:22 05:13 Hgb 8.3 L D Crossmatch ([facility]) See Detail DS: Diagnosis Discharge Diagnosis (1) hemorrhage: Status: Acute Code(s): O72.1 - Other immediate hemorrhage Qualifiers: hemorrhage type: third-stage Qualified Code(s): O72.0 - Third-stage hemorrhage (2) induced hypertension, antepartum: Status: Acute Code(s): O13.9 - Gestational [-induced] hypertension without significant proteinuria, unspecified trimester (3) Anxiety: Status: Resolved Code(s): F41.9 - Anxiety disorder, unspecified (4) Normal delivery: Status: Resolved Code(s): O80 - Encounter for full-term uncomplicated delivery Meds Home Medications and Allergies Home Medications Medication Instructions Recorded Confirmed Type nifedipine 30 mg tablet,extended 30 mg PO DAILY High Blood Pressure 10/19/22 10/19/22 History release 24 hr vit no.95-ferrous 1 tab PO DAILY Supplement 10/19
[2022-10-21 09:19] LABS: Calcium, Ionized 4.5 mg/dL (4.5-5.6)
--- NOTE | 2022-10-21 10:07 | SW/DCPLANNER ---
Addendum entered by Natasha Edwards 10/27/22 09:21: Infant cord screen is NEGATIVE. Original Note: I received a consult on this patient regarding: previous drug history. Patient tested negative on all the following dates: 05/05/22, 07/28/22, 08/11/22, 09/21/22, 10/05/22 and admission 10/19/22. Infant male (Mikie Douglas) was born on 10[birth year]19/22. 's father is per patient. Patient will reside at [address] [place] [address] w/ her mother (Bobbi Rubin) and two other children (Dewey Douglas 08/23/20 and Yonathan Logan 10/08/07). Patient's contact number is [phone]. Patient stated that she has had a past Social Service involvement: now closed case and children were not removed. Patient is established with [facility]. Patient has the following items at home: crib, carseat, clothing, diapers and will be bottle feeding. Patient stated that will follow up with Dr Martinez and will have transportation to all follow up appointments. I spoke with Dr Perdomo this AM and he felt patient/ were appropriate. Patient will discharge home today. Patient has no further needs/concerns at this time.
== END 2022-10-21 09:43 | disposition home or self-care (01) | DRG 807 ==
PROVIDERS: Admitting Provider Nurse Practitioner Obstetrics & Gynecology; PCP Physician Assistant; Visit Provider Nurse Practitioner Obstetrics & Gynecology
DX: O13.4 Gestational [pregnancy-induced] hypertension without significant proteinuria, complicating childbirth (principal); Z37.0 Single live birth; O99.334 Smoking (tobacco) complicating childbirth; F17.210 Nicotine dependence, cigarettes, uncomplicated; O72.1 Other immediate postpartum hemorrhage; O99.344 Other mental disorders complicating childbirth; F41.9 Anxiety disorder, unspecified
CPT/HCPCS: 59409; 36415; 59025; 80048; 80053; 80305; 81001; 82330; 84450; 84460; 84550; 85007; 85014; 85018; 85025; 85378; 85384; 85610; 85730; 86850; 94761; G0283; J2405; P9016; P9017

== ENCOUNTER 2022-11-04 17:35 | Inpatient (IN) | payer MEDICAID, SELFPAY ==
[2022-11-04] VITALS (29 sets, daily range): BP systolic 133–198; BP diastolic 67–110; PULSE 77–104; RESP 15–18; TEMP 36.9; O2SAT 99–100; BMI 23.1
--- NOTE | 2022-11-04 15:43 | PC.NURSE ---
Dr. Neil called unit to notify of pt. registering to be seen in OB triage. MD reports BP 180/120 in office, Orders received to insert IV and draw PIH labs, monitor frequent BP Q15 Minutes. Orders read back and verified.
--- NOTE | 2022-11-04 15:50 | PC.NURSE ---
Pt. arrived to unit and instructed to provide urine sample. Pt. v/u, and into bathroom.
[2022-11-04 16:37] LABS: Microscopic, Urine URINE MICROSCOPIC (MICROSCOPIC)
[2022-11-04 16:40] LABS: Appearance,Urine CLEAR (Clear); Bilirubin,Urine Negative (Negative); Blood, Urine 2+ (Negative); Color,Urine YELLOW (Yellow); Glucose,Urine (UA) Negative (Negative); Ketones,Urine Negative (Negative); Leukocyte Esterase,Urine 1+ (Negative); Nitrate,Urine Negative (Negative); PH,Urine 6.5 (5.0-8.5); Protein,Urine 2+ (Negative); Urobilinogen,Urine 0.2 EU/dl (0.2)
[2022-11-04 16:42] LABS: Basophils # 0.1 K/mm3 (0-0.2); Basophils % 0.5 % (0.1-2.0); Eosinophils # 0.5 K/mm3 (0.0-0.4); Hemoglobin 10.8 g/dL (12.2-16.2); Lymphocytes # 3.2 K/mm3 (0.7-4.5); Lymphocytes % 26.3 % (10-50); Mean Corpuscular HGB Conc 32.9 g/dL (31.8-35.4); Mean Corpuscular Hemoglobin 30.5 pg (27.0-31.2); Mean Corpuscular Volume 92.7 fl (81-99); Mean Platelet Volume 7.2 fl (7.4-10.4); Monocytes # 0.5 K/mm3 (0.1-1.0); Monocytes % 3.9 % (1.7-9.3); Neutrophils % 65.3 % (37.0-80.0); Platelet Count 590 K/mm3 (142-424); Red Blood Count 3.56 M/mm3 (4.20-5.40); Red Cell Distribution Width 16.5 % (11.5-17.5); White Blood Count 12.2 K/mm3 (4.8-10.8)
[2022-11-04 16:56] LABS: Activated Partial Thrombo Time 29.8 seconds (22.8-30.6); Fibrinogen 497 mg/dL (229.9-363.5); INR 0.93 (0.9-1.1); Prothrombin Time 10.1 seconds (10.1-12.5)
[2022-11-04 17:04] LABS: D-Dimer 1.16 ug/mL (0.0-0.5)
[2022-11-04 17:10] LABS: WBC,Urine 20-50 #/hpf (0-3)
[2022-11-04 17:11] LABS: Squamous Epithelial Cell,Urine Occasional #/hpf (0-5)
[2022-11-04 17:23] LABS: Amphetamine/Metha Screen,Urine Negative ng/ml (<1000)
[2022-11-04 17:24] LABS: Barbiturates Screen,Urine Negative ng/ml (<200)
--- NOTE | 2022-11-04 17:35 | PC.NURSE ---
Dr. Neil in to see pt.
--- NOTE | 2022-11-04 17:40 | EXP.HP ---
History of Present Illness *Admission Date: 11/04/22 *Reason for visit:: Increased blood pressure *History of present illness: She is a 37-year-old 5 para 5 who is 2 weeks . She was seen in the office this afternoon and her blood pressures were in the 180/110 range. We took 3 separate blood pressures and it still remained elevated so we sent her to labor and delivery. On arrival here she was 168/104. Her last blood pressure was 184/104. She has been given 3 doses of IV labetalol. She denies any headache, scotomata or epigastric pain. [facility] Disclaimer: The information contained in this section may have been updated after the patient was seen, as this information can be updated by other users. Medical History 2 weeks follow-up Anxiety Bilateral otitis media Migraine headache with aura thyroiditis Syncopal episodes Social History Smoking Status: Current every day smoker tobacco type: cigarettes packs per day: 1 alcohol intake: never substance use type: denies use current occupational status: employed Travel in the last 8 weeks: None housing: house marital status: single Review of Systems Review of Systems Review of systems:: pertinent systems reviewed and negative unless documented below Meds Home Medications and Allergies Home Medications Medication Instructions Recorded Confirmed Type vit no.95-ferrous 1 tab PO DAILY Supplement 10/19/22 11/04/22 History fumarate 28 mg-folic acid 800 mcg tablet () ferrous sulfate 325 mg (65 mg 325 mg PO DAILY #30 tabs 10/21/22 11/04/22 Rx iron) tablet (Iron (ferrous sulfate)) hydroxyzine HCl 25 mg tablet 25 mg PO TIDP PRN Anxiety #90 tabs 10/21/22 11/04/22 Rx nifedipine 30 mg tablet,extended 60 mg PO DAILY High Blood Pressure 11/04/22 11/04/22 Rx release 24 hr #60 tabs New Prescriptions to Start Prescriptions: Allergies Allergy/AdvReac Type Severity Reaction Status Date / Time No Known Allergies Allergy Verified 11/04/22 15:16 Exam Data for Last 24 hours Vital signs and Labs for Last 24 Hours: Temp Pulse Resp BP Pulse Ox O2 Del Method 98.5 F 80 18 184/104 H 99 Room Air 11/04/22 16:20 11/04/22 16:20 11/04/22 16:20 11/04/22 17:30 11/04/22 16:20 11/04/22 16:20 Laboratory Results - last 24 hr 11/04/22 16:23: WBC 12.2 H, RBC 3.56 L, Hgb 10.8 L, Hct 33.0 L, MCV 92.7, MCH 30.5, MCHC 32.9, RDW 16.5, Plt Count 590 H, MPV 7.2 L, Neut % (Auto) 65.3, Lymph % (Auto) 26.3, [place] % (Auto) 3.9, Eos % (Auto) 4.0, Baso % (Auto) 0.5, Neut # (Auto) 8.0 H, Lymph # (Auto) 3.2, [place] # (Auto) 0.5, Eos # (Auto) 0.5 H, Baso # (Auto) 0.1, PT 10.1, INR 0.93, APTT 29.8, Fibrinogen 497 H, D-Dimer 1.16 H 11/04/22 16:28: Urine Color Yellow, Urine Appearance Clear, Urine pH 6.5, Ur Specific [place] 1.020, Urine Protein 2+, Urine Glucose (UA) Negative, Urine Ketones Negative, Urine Blood 2+, Urine Nitrate Negative, Urine Bilirubin Negative, Urine Urobilinogen 0.2, Ur Leukocyte Esterase 1+ A, Urine RBC None, Urine WBC 20-50, Ur Squamous Epith Cells Occasional, Urine Bacteria None, Ur Barbituates Screen Negative, Ur Amphetamines Screen Negative I & O for Last 24 hours: Intake & Output 11/02/22 11/03/22 11/04/22 11/05/22 11:59 11:59 11:59 11:59 Weight 135 lb Constitutional Constitutional: no acute distress *Routine HEENT Exam Head: Present normocephalic Eye: Present EOMI and PERRL ENT: Present mucous membranes moist *Routine Neck Exam Neck: Present supple; Absent lymphadenopathy *Routine Respiratory Exam Respiratory: Present CTA bilaterally *Routine Cardiovascular Exam Cardiovascular: Present RRR *Routine Abdominal Exam Abdominal: Present soft and normoactive bowel sounds; Absent tenderness *Routine Rectal Exam Rectal:: deferred *Routine Genitalia Exam Genitalia
[2022-11-04 18:08] LABS: Chloride 109 mmol/L (98-107)
[2022-11-04 18:09] LABS: Potassium 3.7 mmoL/L (3.5-5.1); Sodium 140 mmol/L (136-145)
[2022-11-04 18:12] LABS: Anion Gap 11.7 mEq/L (5-15); Blood Urea Nitrogen 11 mg/dl (7-17); Carbon Dioxide 23 mmol/L (22.0-30.0); Creatinine Clearance Estimated 94 mL/min (50-200); Estimated Glomerular Filt Rate 81 ml/min (>60); GFR (African American) 98 ML/MIN (>60)
[2022-11-04 18:28] LABS: Glucose 88 mg/dl (74-100)
--- NOTE | 2022-11-04 18:30 | PC.NURSE ---
Dr. Gupta in room.
[2022-11-04 18:42] LABS: Uric Acid 6.1 mg/dl (2.5-6.2)
--- NOTE | 2022-11-04 18:45 | PC.NURSE ---
CIERRA Brachial and patellar Reflexes noted to be brisk 2+, no Clonus noted.
--- NOTE | 2022-11-04 18:45 | EXP.PN ---
Subjective *Date: 11/04/22 *Time: 18:45 Interval history: Called by RN after patient had 20, followed by 40mg then 80 mg of IV Labetalol. She then had a dose of 10mg of IV Hydralazine and she had a dose of 60mg PO Nifedipine 2-3 hours early. At that time she was still having sustained BP. Gretel is a 37yo 2weeks from a vaginal delivery that was complicated by a hemorrhage requiring 2units PRBCs. On my arrival to L&D pt was completely asymptomatic. She denied any headaches, vision changes, RUQ pain. She denies chronic hypertension and states this is all gestational. She had preeclampsia with her last delivery and received magnesium but has not received magnesium with this /delivery. When I saw the patient her BP was 150/80s. She is bottle feeding. Pt states she has a lot of stress at home with a and a two year old. Her fiance during this adding to the stress. Exam Data for Last 24 hours Vital signs and Labs for Last 24 Hours: Temp Pulse Resp BP Pulse Ox O2 Del Method 98.5 F 80 18 172/94 H 99 Room Air 11/04/22 16:20 11/04/22 16:20 11/04/22 16:20 11/04/22 17:45 11/04/22 16:20 11/04/22 16:20 Laboratory Results - last 24 hr 11/04/22 16:23: WBC 12.2 H, RBC 3.56 L, Hgb 10.8 L, Hct 33.0 L, MCV 92.7, MCH 30.5, MCHC 32.9, RDW 16.5, Plt Count 590 H, MPV 7.2 L, Neut % (Auto) 65.3, Lymph % (Auto) 26.3, [place] % (Auto) 3.9, Eos % (Auto) 4.0, Baso % (Auto) 0.5, Neut # (Auto) 8.0 H, Lymph # (Auto) 3.2, [place] # (Auto) 0.5, Eos # (Auto) 0.5 H, Baso # (Auto) 0.1, PT 10.1, INR 0.93, APTT 29.8, Fibrinogen 497 H, D-Dimer 1.16 H, Sodium 140, Potassium 3.7, Chloride 109 H, Carbon Dioxide 23, Anion Gap 11.7, BUN 11, Creatinine 0.80, Estimated Creat Clear 94, Estimated GFR 81, Est GFR ( Amer) 98, Glucose 88, Uric Acid 6.1, Calcium 9.0 11/04/22 16:28: Urine Color Yellow, Urine Appearance Clear, Urine pH 6.5, Ur Specific [place] 1.020, Urine Protein 2+, Urine Glucose (UA) Negative, Urine Ketones Negative, Urine Blood 2+, Urine Nitrate Negative, Urine Bilirubin Negative, Urine Urobilinogen 0.2, Ur Leukocyte Esterase 1+ A, Urine RBC None, Urine WBC 20-50, Ur Squamous Epith Cells Occasional, Urine Bacteria None, Ur Barbituates Screen Negative, Ur Amphetamines Screen Negative I & O for Last 24 hours: Intake & Output 11/01/22 11/02/22 11/03/22 11/04/22 23:59 23:59 23:59 23:59 Weight 135 lb Constitutional Constitutional: no acute distress *Routine HEENT Exam Head: Present normocephalic and atraumatic Eye: Present EOMI, PERRL and normal accommodation; Absent conjunctival icterus ENT: Present mucous membranes moist *Routine Neck Exam Neck: Present supple and full ROM; Absent lymphadenopathy *Routine Respiratory Exam Respiratory: Present CTA bilaterally, normal respiratory effort, able to speak in complete sentences and symmetric chest movement; Absent accessory muscle use, decreased breath sounds, prolonged expiratory phase, respiratory distress, stridor, wheezes, crackles, distant breath sounds or diminished air movement *Routine Cardiovascular Exam Cardiovascular: Present RRR (slightly tachycardic - HR in the 90s), Normal S1 and Normal S2; Absent murmur, rubs, bradycardia or JVD *Routine Abdominal Exam Abdominal: Present soft and normoactive bowel sounds; Absent tenderness, distended, rebound or guarding *Routine Extremities Exam Extremities: Present full ROM, pulses intact and normal capillary refill; Absent cyanosis, clubbing, edema, calf tenderness or Anne's sign Comments: +2/4 patellar reflexes bilaterally *Routine Skin Exam Skin: Present intact, warm and normal turgor; Absent cyanosis, erythema, dry, pallor, mottling, petechiae, urticaria, lesions, jaundice or rash *Routine Neurological Exam Neurological: Present alert and oriented X3 Routine Psychiatric Exam Psychiatric: Present normal affect, normal thought process, cooperative, good insight and good judgment; Absent suicidal i
[2022-11-04 19:18] LABS: Alanine Aminotransferase 17 U/L (12-78); Aspartate Amino Transferase 18 U/L (14-36)
--- NOTE | 2022-11-04 19:38 | PC.NURSE ---
Patient lung sounds clear throughout. +2 DTR. Patient alert and oriented. Clonus absent.
[2022-11-04 19:45] LABS: Alanine Aminotransferase 17 U/L (12-78); Albumin Level 3.1 g/dl (3.5-5.0); Alkaline Phosphatase 178 U/L (38-126); Aspartate Amino Transferase 18 U/L (14-36); Bilirubin,Indirect 0.2 mg/dL (0.0-0.9); Bilirubin,Total 0.2 mg/dl (0.2-1.3); Bilirubin,Unconjugated 0.4 mg/dL (0.0-1.1); Total Protein,Serum 6.1 g/dl (6.3-8.2)
[2022-11-04 19:46] LABS: Magnesium 1.8 mg/dl (1.6-2.3)
[2022-11-04 20:32] LABS: Benzodiazepines Screen,Urine Negative ng/ml (<200); Cannabinoid Screen,Urine Negative ng/ml (<50)
[2022-11-04 20:33] LABS: Cocaine Screen,Urine Negative ng/ml (<300)
[2022-11-04 20:34] LABS: Methadone Screen,Urine Negative ng/ml (<300); Opiate Screen,Urine Negative ng/ml (<300)
[2022-11-04 20:35] LABS: Phencyclidine Screen,Urine Negative ng/ml (<25)
--- NOTE | 2022-11-04 20:40 | PC.NURSE ---
Patient is awake and alert. Patient lung sounds remain clear throughout. Patient DTR remain +2 and clonus is absent. Patient respirations are 15-18.
--- NOTE | 2022-11-04 21:41 | PC.NURSE ---
Lab at bedside.
--- NOTE | 2022-11-04 21:45 | PC.NURSE ---
Patient is awake and alert. Respirations are between 15-17 breaths per minute. Patient DTR remain at +2. Patient is negative for clonus and breath sounds are clear throughout.
[2022-11-04 22:14] LABS: Magnesium 6.2 mg/dl (1.6-2.3)
--- NOTE | 2022-11-04 22:45 | PC.NURSE ---
Patient is alert and awake. Patient respirations are 15-17. Clonus absent. DTR +2. Patient lung sounds are clear throughout.
--- NOTE | 2022-11-04 23:46 | PC.NURSE ---
Patient is awake and alert. Patient respirations are equal and unlabored at 15-17 breaths per minute. Patient lung sounds are clear throughout. Patient DTR remain +2 and clonus absent.
[2022-11-05] VITALS (21 sets, daily range): BP systolic 100–154; BP diastolic 56–83; PULSE 65–111; RESP 14–18; TEMP 36.4–36.8; O2SAT 95–100
--- NOTE | 2022-11-05 00:46 | PC.NURSE ---
Patient is awake and alert. Patient respirations are equal and unlabored. Breath sounds are clear throughout. Clonus absent, DTR +2. Respirations are 15-17 breaths per minute.
--- NOTE | 2022-11-05 01:49 | PC.NURSE ---
Patient is awake and alert. Patient respirations are equal and unlabored. Respirations are 15-16. DTR is +2. Clonus absent. Patient lung sounds clear throughout.
--- NOTE | 2022-11-05 02:02 | PC.NURSE ---
Patient magnesium level drawn at this time. Patient tolerated well.
[2022-11-05 02:20] LABS: Magnesium 8.7 mg/dl (1.6-2.3)
--- NOTE | 2022-11-05 02:20 | PC.NURSE ---
Margarita from lab called with a critical magnesium level of 8.7. Name, and value repeated x2.
--- NOTE | 2022-11-05 02:24 | PC.NURSE ---
Magnesium and fluids stopped at this time per Dr. Gupta.
--- NOTE | 2022-11-05 02:53 | PC.NURSE ---
Patient easily aroused from sleep. Patient respirations are equal and unlabored at 14-15 breaths per minute. Patient lung sounds are clear throughout. Patient DTR remain +2. Clonus absent.
--- NOTE | 2022-11-05 03:52 | PC.NURSE ---
Patient easily aroused from sleep. Respirations are equal and unlabored. Respirations are 14-15 breaths per minutes. Clonus remains absent. DTR are +2. Urine output is adequate. López catheter remains in place draining clear, yellow urine by gravity. Patient bowel sounds are active in all quadrants. Patient denies any pain. No acute events thus far in this RN shift.
--- NOTE | 2022-11-05 04:49 | PC.NURSE ---
Patient is asleep and easily aroused. Patient DTR remain +2. Clonus absent. Respirations are equal and unlabored. Breath sounds clear throughout.
--- NOTE | 2022-11-05 05:45 | PC.NURSE ---
Patient awake and alert. Respirations are equal and unlabored. DTR are +2. Clonus absent. Patient lungs are clear throughout.
[2022-11-05 05:50] LABS: Magnesium 5.4 mg/dl (1.6-2.3)
--- NOTE | 2022-11-05 06:46 | PC.NURSE ---
Patient is awake and alert. Respirations are equal and unlabored. DTR is +2. Clonus absent. Lung sounds clear throughout.
--- NOTE | 2022-11-05 07:30 | PC.NURSE ---
at bs to see pt. Verbal order received to restart Magnesium Sulfate at 1gm/hr and d/c at 7pm tonight. Recheck Mag level in 4hrs. Repeated and verified.
--- NOTE | 2022-11-05 07:36 | PC.NURSE ---
Magnesium Sulfate infusion restarted at 1gm/hr per 's orders. Pt sitting up in bed eating breakfast. Voices no needs at this time. Pt's grandmother at bs attentive to baby.
--- NOTE | 2022-11-05 08:50 | EXP.ACUTE.PN ---
Subjective *Date: 11/05/22 *Time: 08:50 Interval history: Hospital day # 1, preeclampsia. She is 2 weeks 3 days s/p with subsequent hemorrhage Gretel is doing well this morning. She was started on mag sulfate at 1900 on 11/04. Mag level at 0202 was 8.7. Mag sulfate was discontinued at that time. Repeat mag level at 0535 was 5.4. BP has been normotensive since 2245 last night, 11/04. She remains asymptomatic. She is formula feeding. Medical Exam Vital signs and Labs for Last 24 Hours: Vital Signs Temp Pulse Resp BP BP Pulse Ox O2 Del Method 11/05/22 06:44 82 15 112/56 L 100 Room Air 11/05/22 06:44 Room Air 11/05/22 05:43 80 17 128/64 97 Room Air 11/05/22 05:43 Room Air 11/05/22 04:45 67 16 112/59 L Room Air 11/05/22 04:45 Room Air 11/05/22 03:45 97.6 F 65 14 100/59 L 97 Room Air 11/05/22 03:45 Room Air 11/05/22 02:44 71 14 111/63 97 Room Air 11/05/22 02:44 Room Air 11/05/22 01:45 72 15 111/57 L 100 Room Air 11/05/22 01:45 Room Air 11/05/22 00:43 85 15 130/62 99 Room Air 11/05/22 00:43 Room Air 11/04/22 23:44 87 17 137/68 100 Room Air 11/04/22 23:44 Room Air 11/04/22 22:45 77 15 133/67 100 Room Air 11/04/22 22:45 Room Air 11/04/22 21:45 88 17 143/83 H 100 Room Air 11/04/22 21:33 89 141/83 H 99 Room Air 11/04/22 21:18 90 152/84 H 100 Room Air 11/04/22 21:03 88 145/84 H 99 Room Air 11/04/22 20:48 90 16 153/86 H 100 Room Air 11/04/22 20:33 89 155/81 H 99 Room Air 11/04/22 20:18 82 159/83 H 100 Room Air 11/04/22 20:03 86 158/82 H 100 Room Air 11/04/22 19:47 88 15 160/84 H 100 Room Air 11/04/22 19:43 97 H 17 170/84 H 99 Room Air 11/04/22 19:38 98 H 16 160/93 H 100 Room Air 11/04/22 19:32 98.4 F 97 H 15 168/93 H 100 Room Air 11/04/22 19:28 95 H 174/99 H 11/04/22 19:16 104 H 179/102 H 11/04/22 19:15 91 H 179/90 H 11/04/22 21:44 Room Air 11/04/22 20:43 Room Air 11/04/22 19:40 Room Air 11/04/22 19:39 100 Room Air 11/04/22 18:39 93 H 156/80 H 11/04/22 18:26 92 H 171/99 H 11/04/22 18:15 80 16 174/86 H 11/04/22 17:45 172/94 H 11/04/22 17:30 184/104 H 11/04/22 17:25 184/104 H 11/04/22 17:10 198/100 H 11/04/22 17:05 198/100 H 11/04/22 16:50 178/104 H 11/04/22 16:35 168/100 H 11/04/22 16:20 98.5 F 80 18 168/110 H 99 Room Air Intake and Output 11/04/22 11/05/22 11/05/22 23:59 07:59 15:59 Intake Total 877 / 877 Output Total 2375 / 2375 1670 / 1670 Balance -2375 / -2375 -793 / -793 Intake: Intake, Total IV Amount 828 / 828 Lactated Ringers 1000ML 1,000 500 / 500 ml @ 75 mls/hr IV .[id number] [facility] Rx#:[id number] Magnesium Sulfate in Water 20 328 / 328 gm In 500 ml @ 2 GM/HR 50 mls/ hr IV .Q10H [facility] Rx#:[id number] Infusion Intake 49 / 49 Magnesium Sulfate in Water 4 gm 49 / 49 In 50 ml @ 150 mls/hr IV ONCE ONE Rx#:[id number] Output: Output, Urine Amount 1175 / 1175 1670 / 1670 Output, Urine Amount (Catheter) 1200 / 1200 López 1200 / 1200 Laboratory Results - last 24 hr 11/04/22 16:23: WBC 12.2 H, RBC 3.56 L, Hgb 10.8 L, Hct 33.0 L, MCV 92.7, MCH 30.5, MCHC 32.9, RDW 16.5, Plt Count 590 H, MPV 7.2 L, Neut % (Auto) 65.3, Lymph % (Auto) 26.3, [place] % (Auto) 3.9, Eos % (Auto) 4.0, Baso % (Auto) 0.5, Neut # (Auto) 8.0 H, Lymph # (Auto) 3.2, [place] # (Auto) 0.5, Eos # (Auto) 0.5 H, Baso # (Auto) 0.1, PT 10.1, INR 0.93, APTT 29.8, Fibrinogen 497 H, D-Dimer 1.16 H, Sodium 140, Potassium 3.7, Chloride 109 H, Carbon Dioxide 23, Anion Gap 11.7, BUN 11, Creatinine 0.80, Estimated Creat Clear 94, Estimated GFR 81, Est GFR ( Amer) 98, Glucose 88, Uric Acid 6.1, Calcium 9.0, Magnesium 1.8, Total Bil[place]u
--- NOTE | 2022-11-05 10:31 | PC.NURSE ---
López Cath discontinued per 's order. Pt tolerated well. Urine specimen hat placed in toilet to measure voids.
[2022-11-05 12:31] LABS: Magnesium 6.1 mg/dl (1.6-2.3)
--- NOTE | 2022-11-05 16:17 | EXP.DC.SUM ---
General Admission date:: 11/04/22 Discharge date: 11/05/22 HPI HPI HPI: She is a 37-year-old 5 para 5 who is 2 weeks . She was seen in the office on 11/04/22 and her blood pressures were in the 180/110 range. We took 3 separate blood pressures and it still remained elevated so we sent her to labor and delivery. On arrival here she was 168/104. Her last blood pressure was 184/104. She was given 3 doses of IV labetalol. She denied headache, scotomata and epigastric pain. Hospital Course Hospital Course Hospital Course: Ms Gretel Rubin is a 27 yo admitted to [facility] Labor and delivery 2 weeks , s/p vaginal delivery with hemorrhage, secondary to preeclampsia with severe range BP, asymptomatic. She received IV Labetalol 20, 40 and 80 and a total of 15 mg Hydralazine and 25 mg HCTZ. She also took Procardia XL 60 mg PO x 1. PIH labs within normal limits. She was started on mag sulfate. Serum mag level 2 hours after bolus was 6.2. Four hours later mag level was 8.7. Mag sulfate was discontinued and repeat mag level was 5.4 at 0535. Mag sulfate was restarted at 1 gm/hr and continued until 24 hours from bolus was achieved. She remained asymptomatic and did well during hospital stay. BP returned to normotensive and Procardia 30 mg PO daily. No headaches, vision changes, RUQ pain, swelling, chest pain or shortness of breath. She was discharged to home with instructions to follow-up in the office in 4 days for BP check. Exam Data for Last 24 hours Vital signs and Labs for Last 24 Hours: Temp Pulse Resp BP Pulse Ox O2 Del Method 97.6 F 101 H 18 116/57 L 96 Room Air 11/05/22 03:45 11/05/22 13:44 11/05/22 13:44 11/05/22 13:44 11/05/22 13:44 11/05/22 13:44 Laboratory Results - last 24 hr 11/04/22 16:23: WBC 12.2 H, RBC 3.56 L, Hgb 10.8 L, Hct 33.0 L, MCV 92.7, MCH 30.5, MCHC 32.9, RDW 16.5, Plt Count 590 H, MPV 7.2 L, Neut % (Auto) 65.3, Lymph % (Auto) 26.3, [place] % (Auto) 3.9, Eos % (Auto) 4.0, Baso % (Auto) 0.5, Neut # (Auto) 8.0 H, Lymph # (Auto) 3.2, [place] # (Auto) 0.5, Eos # (Auto) 0.5 H, Baso # (Auto) 0.1, PT 10.1, INR 0.93, APTT 29.8, Fibrinogen 497 H, D-Dimer 1.16 H, Sodium 140, Potassium 3.7, Chloride 109 H, Carbon Dioxide 23, Anion Gap 11.7, BUN 11, Creatinine 0.80, Estimated Creat Clear 94, Estimated GFR 81, Est GFR ( Amer) 98, Glucose 88, Uric Acid 6.1, Calcium 9.0, Magnesium 1.8, Total Bilirubin 0.2, Direct Bilirubin 0.0, Conjugated Bilirubin 0.0, Indirect Bilirubin 0.2, Unconjugated Bilirubin 0.4, AST 18 11/04/22 16:23: AST 18, ALT 17 11/04/22 16:23: ALT 17, Alkaline Phosphatase 178 H, Total Protein 6.1 L, Albumin 3.1 L 11/04/22 16:28: Urine Color Yellow, Urine Appearance Clear, Urine pH 6.5, Ur Specific [place] 1.020, Urine Protein 2+, Urine Glucose (UA) Negative, Urine Ketones Negative, Urine Blood 2+, Urine Nitrate Negative, Urine Bilirubin Negative, Urine Urobilinogen 0.2, Ur Leukocyte Esterase 1+ A, Urine RBC None, Urine WBC 20-50, Ur Squamous Epith Cells Occasional, Urine Bacteria None, Urine Opiates Screen Negative, Urine Methadone Screen Negative, Ur Barbituates Screen Negative, Ur Phencyclidine Scrn Negative, Ur Amphetamines Screen Negative, U Benzodiazepines Scrn Negative, Urine Cocaine Screen Negative, U Marijuana (THC) Screen Negative 11/04/22 21:47: Magnesium 6.2 H D 11/05/22 02:02: Magnesium 8.7 H* D 11/05/22 05:35: Magnesium 5.4 H D 11/05/22 11:50: Magnesium 6.1 H D I & O for Last 24 hours: Intake & Output 08/22/11/03/22 11/04/22 11/05/22 23:59 23:59 23:59 23:59 Intake Total 1277 / 1277 Output Total 2375 / 2375 2270 / 2270 Balance -2375 / -2375 -993 / -993 Weight 135 lb Constitutional Constitutional: no acute distress *Routine HEENT Exam Head: Present normocephalic and atraumatic Eye: Absent conjunctivae pink ENT: Present mucous membranes moist *Routine Neck Exam Neck: Present full ROM *Routine Respiratory Exam Respiratory:
--- NOTE | 2022-11-05 17:32 | PC.NURSE ---
Resting w/o complaints. Denies any needs at this time. Sitting up in bed holding baby upon entering room. Pt's mother at bs attentive to baby.
--- NOTE | 2022-11-05 19:00 | PC.NURSE ---
REPORT RECIEVED FROM TRISHARN
--- NOTE | 2022-11-05 19:00 | PC.NURSE ---
Mag Sulfate infusion discontinued at this time.
--- NOTE | 2022-11-05 19:01 | PC.NURSE ---
Report given to CRISTINA Wolfe.
--- NOTE | 2022-11-05 19:30 | PC.NURSE ---
PT JUST RETURNED FROM BATHROOM,NO NEEDS OR CONCERNS VOICED
--- NOTE | 2022-11-05 20:08 | PC.NURSE ---
PT TAKEN OFF UNIT PER STAFF IN WHEELCHAIR.INFANT IN CAR SEAT ON MOMS LAP.FAMILY AT SIDE WITH BELONGINGS
== END 2022-11-05 20:08 | disposition home or self-care (01) | DRG 776 ==
LOC: OBOUT 17:36 → OB 17:37
PROVIDERS: Obstetrics & Gynecology; Admitting Provider Nurse Practitioner Obstetrics & Gynecology; PCP Physician Assistant; Visit Provider Nurse Practitioner Obstetrics & Gynecology
DX: O14.95 Unspecified pre-eclampsia, complicating the puerperium (principal); F17.210 Nicotine dependence, cigarettes, uncomplicated
CPT/HCPCS: 36415; 80048; 80076; 80305; 81001; 83735; 84450; 84460; 84550; 85025; 85378; 85384; 85610; 85730; 87086; 94761; G0283; J2405